=== PATIENT | male | born 1945 | race African-American/Black ===

== ENCOUNTER 2017-10-18 21:13 | Emergency (ER) | payer BC, MEDICARE ==
[~2017-10-18] VITALS: Ht 177.8 cm; Wt 82.0 kg
[~2017-10-18 21:13] MED LIST: ASPI-1158 PO; CLOP75TA33 PO; DIVA500T51 PO; DOXA4TAB3 PO; FINA1TAB18 PO; FURO-151 PO; METO-411 PO; PHEN100C12 PO; POTA10TA11 PO; SIMV20TA6 PO; TOPI25TA48 PO
[2017-10-18] MEDS ORDERED: LORAZEPAM 1MG TABLET PO ONE (21:30)
[2017-10-18 23:17] LABS: BASOPHILS % 1.3 % (0.0-2.0); EOSINOPHILS % 0.7 % (0.0-5.0); HEMATOCRIT. 41.7 % (42.0-52.0); HEMOGLOBIN. 13.8 g/dL (14.0-18.0); LYMPHOCYTES % 39.2 % (20.0-50.0); MEAN CORPUSCULAR HEMOGLOBIN 32.2 pg (28.0-32.0); MEAN CORPUSCULAR VOLUME 97.3 fL (80.0-94.0); MEAN PLATELET VOLUME 7.2 fl (7.4-10.4); MONOCYTES % 7.3 % (2.0-8.0); NEUTROPHILS % 51.5 % (40.0-76.0); PLATELET 175 x1000/uL (130-400); RED BLOOD CELL COUNT 4.28 mill/uL (4.7-6.1); RED CELL DISTRIBUTION WIDTH 14.4 % (11.6-14.6)
[2017-10-18 23:22] LABS: CHLORIDE 109 mEq/L (98-107)
[2017-10-19 00:34] VITALS: BP 142/64
== END 2017-10-19 01:08 | disposition home or self-care (01) ==
LOC: ER 21:13
DX: G40.909 Epilepsy, unspecified, not intractable, without status epilepticus (principal); I11.0 Hypertensive heart disease with heart failure; I50.9 Heart failure, unspecified; Z88.1 Allergy status to other antibiotic agents
CPT/HCPCS: 36415; 70450; 80053; 80185; 85025; 99285

== ENCOUNTER 2018-07-21 13:53 | Emergency (ER) | payer BC, MEDICARE ==
[~2018-07-21] VITALS: Ht 175.3 cm; Wt 79.0 kg
[2018-07-21 15:57] LABS: BASOPHILS % 0.7 % (0.0-2.0); EOSINOPHILS % 0.2 % (0.0-5.0); HEMATOCRIT. 45.8 % (42.0-52.0); HEMOGLOBIN. 15.1 g/dL (14.0-18.0); LYMPHOCYTES % 42.7 % (20.0-50.0); MEAN CORPUSCULAR HEMOGLOBIN 32.8 pg (28.0-32.0); MEAN CORPUSCULAR VOLUME 99.3 fL (80.0-94.0); MEAN PLATELET VOLUME 7.8 fl (7.4-10.4); MONOCYTES % 5.4 % (2.0-8.0); PLATELET 160 x1000/uL (130-400); RED BLOOD CELL COUNT 4.61 mill/uL (4.7-6.1); RED CELL DISTRIBUTION WIDTH 15.1 % (11.6-14.6)
[2018-07-21 16:02] LABS: CHLORIDE 114 mEq/L (98-107)
[2018-07-21 16:06] LABS: ETHANOL BLOOD < 10 mg/dL
[2018-07-21 16:07] LABS: CLARITY URINE CLEAR (CLEAR); COLOR URINE YELLOW (YELLOW); KETONES URINE NEGATIVE (NEGATIVE); LEUKOCYTE ESTERASE URINE NEGATIVE (NEGATIVE); NITRITE URINE NEGATIVE (NEGATIVE); OCCULT BLOOD URINE NEGATIVE (NEGATIVE); PH URINE 6.5 (4.5-8.0); PROTEIN URINE NEGATIVE (NEGATIVE)
[2018-07-21 16:19] LABS: *AMPHETAMINES SCREEN URINE NEGATIVE (NEGATIVE); *BARBITURATES SCREEN URINE NEGATIVE (NEGATIVE); *BENZODIAZEPINES SCREEN URINE NEGATIVE (NEGATIVE); *COCAINE SCREEN URINE NEGATIVE (NEGATIVE)
[2018-07-21 16:20] LABS: CANNABINOID URINE SCREEN PRESUMTIVE POSITIVE (NEGATIVE); METHADONE URINE SCREEN NEGATIVE (NEGATIVE); OPIATES URINE SCREEN NEGATIVE (NEGATIVE); PHENCYCLIDINE URINE SCREEN NEGATIVE (NEGATIVE)
[2018-07-21 17:32] VITALS: BP 166/67
== END 2018-07-21 18:00 | disposition home or self-care (01) ==
LOC: ER 13:53
DX: R56.9 Unspecified convulsions (principal); I11.0 Hypertensive heart disease with heart failure; I50.9 Heart failure, unspecified; Z79.82 Long term (current) use of aspirin; Z79.899 Other long term (current) drug therapy; Z88.5 Allergy status to narcotic agent
CPT/HCPCS: 36415; 71045; 80165; 80185; 80305; 80320; 83605; 84484; 99284; G0480

== ENCOUNTER 2018-10-02 13:27 | Inpatient (IN) | payer MEDICARE, BC ==
[2018-10-02] VITALS (19 sets, daily range): BP systolic 114–157; BP diastolic 49–128
[~2018-10-02] VITALS: Ht 172.7 cm; Wt 77.6 kg
[~2018-10-02 13:27] MED LIST changes: -FINA1TAB18 PO; -POTA10TA11 PO
[2018-10-02] MEDS ORDERED: LORAZEPAM 2MG/ML CPJ ONE (14:05)
[2018-10-02] MEDS ORDERED: ONDANSETRON HCL 4MG/2ML INJ ONE (14:05)
[2018-10-02] MEDS: ONDANSETRON HCL 4MG/2ML INJ IV STA ×2 (14:20→14:27)
[2018-10-02 14:34] LABS: BG BASE EXCESS -4.3 mmol/L (-2.0-2.0); BG CARBOXYHEMOGLOBIN 1.2 % (0.5-1.5); BG DEOXYHEMOGLOBIN 6.4 % (0.0-5.0); BG FRACTION INSPIRED OXYGEN 21; BG HCO3 ACT 21.4 mmol/L (22.0-26.0); BG METHEMOGLOBIN 0.2 % (0.0-1.5); BG OXYGEN SATURATION 93.5 % (92.0-98.5); BG OXYHEMOGLOBIN 92.2 % (94.0-97.0); BG PCO2 41.6 mmHg (35.0-45.0); BG PO2 72.6 mmHg (75.0-100.0); BG SAMPLE SITE RIGHT RADIAL; BG TOTAL HEMOGLOBIN 13.9 g/dL (12.0-18.0); BG VENT MODE ROOM AIR
[2018-10-02] MEDS ORDERED: LEVOFLOXACIN 500MG PREMIX 100 ML IV ONE (14:45)
[2018-10-02 14:49] LABS: BASOPHILS % 0.9 % (0.0-2.0); EOSINOPHILS % 0.4 % (0.0-5.0); HEMATOCRIT. 39.5 % (42.0-52.0); HEMOGLOBIN. 13.2 g/dL (14.0-18.0); LYMPHOCYTES % 39.6 % (20.0-50.0); MEAN CORPUSCULAR HEMOGLOBIN 32.8 pg (28.0-32.0); MEAN CORPUSCULAR VOLUME 97.9 fL (80.0-94.0); MEAN PLATELET VOLUME 8.3 fl (7.4-10.4); NEUTROPHILS % 52.1 % (40.0-76.0); PLATELET 125 x1000/uL (130-400); RED BLOOD CELL COUNT 4.03 mill/uL (4.7-6.1); RED CELL DISTRIBUTION WIDTH 14.5 % (11.6-14.6)
[2018-10-02 14:56] LABS: CHLORIDE 110 mEq/L (98-107)
[2018-10-02 14:58] LABS: INR 1.4; PROTHROMBIN TIME 13.8 sec (9.6-11.0)
[2018-10-02 15:01] LABS: ETHANOL BLOOD < 10 mg/dL
[2018-10-02 15:04] LABS: LDL CHOLESTEROL 72 mg/dL (5-100)
[2018-10-02 15:05] LABS: CREATINE KINASE 82 IU/L (39-308); CREATINE KINASE MB FRACTION 1.5 ng/mL (0.5-3.6)
[2018-10-02 15:12] LABS: CARBAMAZEPINE < 0.5 ug/mL (4-12); PHENOBARBITAL < 2.1 ug/mL (15.0-40.0)
[2018-10-02] MEDS ORDERED: IOHEXOL-350 100 ML BOTTLE ONE ×2 (15:17→19:36)
[2018-10-02] MEDS ORDERED: VALPROATE SODIUM 500 MG in SODIUM CHLORIDE 0.9% 100 ML IV STA (15:28)
[2018-10-02] MEDS ORDERED: SODIUM CHLORIDE 0.9% IV ONE (15:30)
[2018-10-02] MEDS ORDERED: PHENYTOIN SODIUM IV ONE (15:30)
[2018-10-02 16:15] LABS: CLARITY URINE CLEAR (CLEAR); COLOR URINE YELLOW (YELLOW); KETONES URINE NEGATIVE (NEGATIVE); LEUKOCYTE ESTERASE URINE NEGATIVE (NEGATIVE); NITRITE URINE NEGATIVE (NEGATIVE); OCCULT BLOOD URINE TRACE (NEGATIVE); PH URINE 6.5 (4.5-8.0); PROTEIN URINE NEGATIVE (NEGATIVE); SPECIFIC GRAVITY URINE 1.032 (1.005-1.030); UROBILINOGEN URINE 0.2 E.U./dL (0.2-1.0)
[2018-10-02] MEDS ORDERED: ACETAMINOPHEN 650MG SUPP PR PRN (16:45)
[2018-10-02] MEDS ORDERED: ONDANSETRON HCL 4MG/2ML INJ IV PRN (16:45)
[2018-10-02] MEDS ORDERED: LORAZEPAM 2MG/ML CPJ IV PRN (16:45)
[2018-10-02] MEDS ORDERED: DIPHENHYDRAMINE 50MG/ML VIAL IV PRN (16:45)
[2018-10-02] MEDS ORDERED: IPRATROPIUM/ALBUTEROL 0.5-3(2.5)MG/3ML NEB INH PRN (16:45)
[2018-10-02] MEDS ORDERED: HALOPERIDOL LACTATE 5MG/ML VIAL IM PRN (16:45)
[2018-10-02 17:13] LABS: *BENZODIAZEPINES SCREEN URINE NEGATIVE (NEGATIVE); *COCAINE SCREEN URINE NEGATIVE (NEGATIVE); METHADONE URINE SCREEN NEGATIVE (NEGATIVE); OPIATES URINE SCREEN NEGATIVE (NEGATIVE)
[2018-10-02 17:14] LABS: *AMPHETAMINES SCREEN URINE NEGATIVE (NEGATIVE); *BARBITURATES SCREEN URINE NEGATIVE (NEGATIVE); CANNABINOID URINE SCREEN NEGATIVE (NEGATIVE); PHENCYCLIDINE URINE SCREEN NEGATIVE (NEGATIVE)
[2018-10-02] MEDS ORDERED: LORAZEPAM 2MG/ML CPJ IV ONE (17:45)
[2018-10-02] MEDS ORDERED: TAMS-11 MT (19:25)
[2018-10-02] MEDS: DEXT 5%/0.45% NACL 1000ML 1,000 ML IV SCH (19:59)
[2018-10-02 20:29] LABS: BG BASE EXCESS 0.1 mmol/L (-2.0-2.0); BG CARBOXYHEMOGLOBIN 0.8 % (0.5-1.5); BG DEOXYHEMOGLOBIN 5.8 % (0.0-5.0); BG FRACTION INSPIRED OXYGEN 21; BG HCO3 ACT 24.8 mmol/L (22.0-26.0); BG METHEMOGLOBIN 0.3 % (0.0-1.5); BG OXYGEN SATURATION 94.1 % (92.0-98.5); BG OXYHEMOGLOBIN 93.1 % (94.0-97.0); BG PCO2 40.8 mmHg (35.0-45.0); BG PH 7.402 (7.350-7.450); BG PO2 68.9 mmHg (75.0-100.0); BG SAMPLE SITE LEFT RADIAL; BG TOTAL HEMOGLOBIN 13.2 g/dL (12.0-18.0); BG VENT MODE ROOM AIR
[2018-10-02] MEDS: TAMSULOSIN HCL 0.4MG SR CAPSULE PO SCH ×2 (21:00→21:41)
[2018-10-02] MEDS ORDERED: PIPERACILLIN/TAZ 3.375G PREMIX 50 ML IV SCH (21:00)
[2018-10-02] MEDS: PHENYTOIN SODIUM 100MG/2ML VIAL IV SCH (21:28)
[2018-10-02] MEDS ORDERED: VALPROATE SODIUM 500 MG in SODIUM CHLORIDE 0.9% 100 ML IV SCH (22:00)
[2018-10-02] MEDS: PIPERACILLIN/TAZ 3.375G PREMIX 50 ML IV SCH (22:30)
[2018-10-02 23:41] LABS: CREATINE KINASE MB FRACTION 1.2 ng/mL (0.5-3.6)
[2018-10-03] VITALS (45 sets, daily range): BP systolic 119–166; BP diastolic 51–116
[2018-10-03 04:44] LABS: BASOPHILS % 0.6 % (0.0-2.0); EOSINOPHILS % 0.3 % (0.0-5.0); HEMATOCRIT. 38.8 % (42.0-52.0); HEMOGLOBIN. 12.9 g/dL (14.0-18.0); LYMPHOCYTES % 43.2 % (20.0-50.0); MEAN CORPUSCULAR HEMOGLOBIN 32.5 pg (28.0-32.0); MEAN CORPUSCULAR VOLUME 97.6 fL (80.0-94.0); MEAN PLATELET VOLUME 8.2 fl (7.4-10.4); MONOCYTES % 9.9 % (2.0-8.0); PLATELET 127 x1000/uL (130-400); RED BLOOD CELL COUNT 3.98 mill/uL (4.7-6.1); RED CELL DISTRIBUTION WIDTH 14.7 % (11.6-14.6)
[2018-10-03 04:52] LABS: CHLORIDE 110 mEq/L (98-107)
[2018-10-03 05:02] LABS: LDL CHOLESTEROL 75 mg/dL (5-100)
[2018-10-03 05:03] LABS: CREATINE KINASE 94 IU/L (39-308)
[2018-10-03 05:04] LABS: HDL CHOLESTEROL 52 mg/dL (40-59); T4 FREE 0.54 ng/dL (0.76-1.46)
[2018-10-03] MEDS: PIPERACILLIN/TAZ 3.375G PREMIX 50 ML IV SCH ×3 (06:32→21:39)
[2018-10-03] MEDS: PHENYTOIN SODIUM 100MG/2ML VIAL IV SCH ×3 (06:32→21:40)
[2018-10-03] MEDS: VALPROATE SODIUM 500 MG in SODIUM CHLORIDE 0.9% 100 ML IV SCH ×2 (06:32→18:13)
[2018-10-03] MEDS: ASPIRIN 81MG TABLET PO SCH (08:48)
[2018-10-03] MEDS: ATORVASTATIN CALCIUM 10MG TABLET PO SCH ×2 (08:48→21:39)
[2018-10-03] MEDS: DEXT 5%/0.45% NACL 1000ML 1,000 ML IV SCH ×2 (12:10→15:21)
[2018-10-03] MEDS: TAMSULOSIN HCL 0.4MG SR CAPSULE PO SCH (21:40)
[2018-10-04] VITALS (31 sets, daily range): BP systolic 113–155; BP diastolic 49–80
[2018-10-04 04:25] LABS: BASOPHILS % 0.6 % (0.0-2.0); EOSINOPHILS % 1.3 % (0.0-5.0); HEMOGLOBIN. 14.1 g/dL (14.0-18.0); LYMPHOCYTES % 35.2 % (20.0-50.0); MEAN CORPUSCULAR HEMOGLOBIN 32.6 pg (28.0-32.0); MEAN CORPUSCULAR VOLUME 99.1 fL (80.0-94.0); MONOCYTES % 10.1 % (2.0-8.0); NEUTROPHILS % 52.8 % (40.0-76.0); PLATELET 115 x1000/uL (130-400); RED BLOOD CELL COUNT 4.34 mill/uL (4.7-6.1); RED CELL DISTRIBUTION WIDTH 14.6 % (11.6-14.6)
[2018-10-04 04:30] LABS: CHLORIDE 110 mEq/L (98-107)
[2018-10-04] MEDS: PIPERACILLIN/TAZ 3.375G PREMIX 50 ML IV SCH ×2 (05:38→13:14)
[2018-10-04] MEDS: ASPIRIN 81MG TABLET PO SCH (08:59)
[2018-10-04] MEDS: LAMOTRIGINE 25MG TABLET PO SCH ×2 (08:59→16:15)
[2018-10-04] MEDS: PHENYTOIN SODIUM EXTENDED 100MG CAPSULE PO SCH ×2 (09:00→16:15)
[2018-10-04] MEDS ORDERED: DIVALPROEX SODIUM 500MG ER TABLET PO SCH (09:00)
[2018-10-04] MEDS ORDERED: CLOPIDOGREL 75MG TABLET PO SCH (14:30)
[2018-10-06 09:11] LABS: TOPIRAMATE 1.2 ug/mL (2.0-25.0)
== END 2018-10-04 16:30 | disposition home or self-care (01) | DRG 100 ==
LOC: ER 13:27 → ENRESERV 17:32 → MICUNO 18:25
PROVIDERS: ADMIT Internal Medicine; ATTEND Internal Medicine
DX: G40.411 Other generalized epilepsy and epileptic syndromes, intractable, with status epilepticus (principal); I50.43 Acute on chronic combined systolic (congestive) and diastolic (congestive) heart failure; E87.2 Acidosis; D68.9 Coagulation defect, unspecified; G81.90 Hemiplegia, unspecified affecting unspecified side; I11.0 Hypertensive heart disease with heart failure; E11.9 Type 2 diabetes mellitus without complications; E86.0 Dehydration; D72.819 Decreased white blood cell count, unspecified; D69.6 Thrombocytopenia, unspecified; D64.9 Anemia, unspecified; R29.810 Facial weakness; I65.21 Occlusion and stenosis of right carotid artery; E78.5 Hyperlipidemia, unspecified; Z79.899 Other long term (current) drug therapy; Z88.8 Allergy status to other drugs, medicaments and biological substances; Z79.82 Long term (current) use of aspirin
CPT/HCPCS: 36415; 36600; 70496; 70498; 70551; 71045; 80048; 80061; 80156; 80165; 80184; 80185; 80201; 80305; 80320; 82375; 82550; 82553; 82805; 82962; 83605; 83721; 83880; 84439; 84443; 84484; 93005; 93306; 93970; 96361; 96365; 99285; J1165; J1956; J2060; J2405; J2543; J3490; J7050; Q9967; G0480

== ENCOUNTER 2019-06-24 22:06 | Inpatient (IN) | payer MEDICARE, BC ==
[~2019-06-24] VITALS: Ht 179.1 cm; Wt 87.5 kg
[~2019-06-24 22:06] MED LIST changes: +SIMV-43 PO; -SIMV20TA6 PO; +TAMS-11 MT
[2019-06-24] MEDS ORDERED: LORAZEPAM 2MG/ML CPJ IV ONE (23:30)
[2019-06-24] MEDS ORDERED: PHENYTOIN SODIUM 1,000 MG in SODIUM CHLORIDE 0.9% 100 ML IV ONE (23:30)
[2019-06-25] MEDS ORDERED: LORAZEPAM 2MG/ML CPJ IM ONE (00:45)
[2019-06-25] MEDS ORDERED: PHENYTOIN SODIUM 1,000 MG in SODIUM CHLORIDE 0.9% 100 ML IV SCH (01:00)
[2019-06-25 01:44] LABS: CHLORIDE 108 mEq/L (98-107)
[2019-06-25 01:49] LABS: ETHANOL BLOOD < 10 mg/dL
[2019-06-25 01:54] LABS: BASOPHILS % 0.2 % (0.0-2.0); HEMATOCRIT. 40.5 % (42.0-52.0); HEMOGLOBIN. 13.5 g/dL (14.0-18.0); LYMPHOCYTES % 16.3 % (20.0-50.0); MEAN CORPUSCULAR HEMOGLOBIN 32.2 pg (28.0-32.0); MEAN CORPUSCULAR VOLUME 96.4 fL (80.0-94.0); MEAN PLATELET VOLUME 8.2 fl (7.4-10.4); MONOCYTES % 6.7 % (2.0-8.0); NEUTROPHILS % 76.8 % (40.0-76.0); PLATELET 156 x1000/uL (130-400); RED CELL DISTRIBUTION WIDTH 15.1 % (11.6-14.6)
[2019-06-25 02:52] LABS: CLARITY URINE CLEAR (CLEAR); COLOR URINE YELLOW (YELLOW); KETONES URINE 1+ (NEGATIVE); LEUKOCYTE ESTERASE URINE NEGATIVE (NEGATIVE); NITRITE URINE NEGATIVE (NEGATIVE); OCCULT BLOOD URINE TRACE (NEGATIVE); PH URINE >=9.0 (4.5-8.0); PROTEIN URINE NEGATIVE (NEGATIVE); SPECIFIC GRAVITY URINE 1.017 (1.005-1.030)
[2019-06-25 03:15] LABS: *AMPHETAMINES SCREEN URINE NEGATIVE (NEGATIVE); *BARBITURATES SCREEN URINE NEGATIVE (NEGATIVE); *BENZODIAZEPINES SCREEN URINE NEGATIVE (NEGATIVE); *COCAINE SCREEN URINE NEGATIVE (NEGATIVE); METHADONE URINE SCREEN NEGATIVE (NEGATIVE)
[2019-06-25 03:16] LABS: CANNABINOID URINE SCREEN PRESUMTIVE POSITIVE (NEGATIVE); OPIATES URINE SCREEN NEGATIVE (NEGATIVE); PHENCYCLIDINE URINE SCREEN NEGATIVE (NEGATIVE)
[2019-06-25] MEDS ORDERED: PIPERACILLIN/TAZOBACTAM 3.375 G in DEXT 5% WATER 100 ML IV SCH (14:00)
[2019-06-25] MEDS ORDERED: IPRATROPIUM/ALBUTEROL 0.5-3(2.5)MG/3ML NEB HHN PRN (14:00)
[2019-06-25] MEDS ORDERED: ACETAMINOPHEN 325MG TABLET PO PRN (14:00)
[2019-06-25] MEDS ORDERED: ONDANSETRON HCL 4MG/2ML INJ IV PRN (14:00)
[2019-06-25] MEDS ORDERED: LORAZEPAM 2MG/ML CPJ IV PRN (14:00)
[2019-06-25] MEDS ORDERED: PIPERACILLIN/TAZOBACTAM 3.375 G in DEXT 5% WATER 100 ML IV NR (14:09)
[2019-06-25 21:00] VITALS: BP 157/106
[2019-06-25] MEDS: PIPERACILLIN/TAZOBACTAM 3.375 G in DEXT 5% WATER 100 ML IV SCH (22:57)
[2019-06-25] MEDS: ENOXAPARIN 30MG/0.3ML SYR SUBCUT SCH (22:58)
[2019-06-25] MEDS: CARVEDILOL 6.25 MG TABLET PO SCH (22:59)
[2019-06-26] VITALS: BP 177/71
[2019-06-26 04:00] VITALS: BP 167/66
[2019-06-26] MEDS: PIPERACILLIN/TAZOBACTAM 3.375 G in DEXT 5% WATER 100 ML IV SCH ×4 (04:25→23:23)
[2019-06-26 08:00] VITALS: BP 158/67
[2019-06-26] MEDS: ENOXAPARIN 30MG/0.3ML SYR SUBCUT SCH ×2 (09:00→23:25)
[2019-06-26] MEDS: LOSARTAN POTASSIUM 50 MG TABLET PO SCH (10:45)
[2019-06-26] MEDS: CARVEDILOL 6.25 MG TABLET PO SCH ×2 (10:46→23:24)
[2019-06-26] MEDS ORDERED: VANCOMYCIN 1,000 MG in DEXT 5% WATER 250 ML IV SCH (11:00)
[2019-06-26 12:00] VITALS: BP 155/72
[2019-06-26 16:00] VITALS: BP 174/91
[2019-06-26] MEDS: PHENYTOIN SODIUM EXTENDED 100MG CAPSULE PO SCH (16:11)
[2019-06-26] MEDS: DIVALPROEX SODIUM 500MG DR TABLET PO SCH (16:13)
[2019-06-26] MEDS: TOPIRAMATE 25MG TABLET PO SCH (16:13)
[2019-06-26] MEDS: FUROSEMIDE 40MG TABLET PO SCH (16:13)
[2019-06-26 20:00] VITALS: BP 153/70
[2019-06-26] MEDS: METOPROLOL TARTRATE 50MG TABLET PO SCH (23:24)
[2019-06-26] MEDS: TAMSULOSIN HCL 0.4MG SR CAPSULE PO SCH (23:24)
[2019-06-26] MEDS: ATORVASTATIN CALCIUM 10MG TABLET PO SCH (23:24)
[2019-06-27] VITALS: BP 162/68
[2019-06-27 00:30] VITALS: BP 155/58
[2019-06-27 04:00] VITALS: BP 156/67
[2019-06-27] MEDS: PIPERACILLIN/TAZOBACTAM 3.375 G in DEXT 5% WATER 100 ML IV SCH ×4 (06:23→21:39)
[2019-06-27] MEDS: FUROSEMIDE 40MG TABLET PO SCH ×2 (06:24→17:22)
[2019-06-27 08:00] VITALS: BP 157/72
[2019-06-27] MEDS: PHENYTOIN SODIUM EXTENDED 100MG CAPSULE PO SCH ×2 (09:00→17:22)
[2019-06-27] MEDS: DIVALPROEX SODIUM 500MG DR TABLET PO SCH ×2 (09:00→17:22)
[2019-06-27] MEDS: CARVEDILOL 6.25 MG TABLET PO SCH ×2 (09:27→21:43)
[2019-06-27] MEDS: DOXAZOSIN MESYLATE 4MG TABLET PO SCH (09:28)
[2019-06-27] MEDS: METOPROLOL TARTRATE 50MG TABLET PO SCH ×2 (09:29→21:36)
[2019-06-27] MEDS: LOSARTAN POTASSIUM 50 MG TABLET PO SCH (09:29)
[2019-06-27] MEDS: CLOPIDOGREL 75MG TABLET PO SCH (09:29)
[2019-06-27] MEDS: TOPIRAMATE 25MG TABLET PO SCH ×2 (09:29→17:22)
[2019-06-27] MEDS: ASPIRIN 81MG EC TABLET PO SCH (09:30)
[2019-06-27] MEDS: ENOXAPARIN 30MG/0.3ML SYR SUBCUT SCH ×2 (09:31→21:38)
[2019-06-27 20:00] VITALS: BP 137/68
[2019-06-27] MEDS: ATORVASTATIN CALCIUM 10MG TABLET PO SCH (21:37)
[2019-06-27] MEDS: TAMSULOSIN HCL 0.4MG SR CAPSULE PO SCH (21:38)
[2019-06-28] VITALS: BP 146/65
[2019-06-28] MEDS: PIPERACILLIN/TAZOBACTAM 3.375 G in DEXT 5% WATER 100 ML IV SCH ×2 (03:02→10:53)
[2019-06-28 04:00] VITALS: BP 152/61
[2019-06-28] MEDS: FUROSEMIDE 40MG TABLET PO SCH ×2 (05:55→16:29)
[2019-06-28] MEDS: CLOPIDOGREL 75MG TABLET PO SCH (10:51)
[2019-06-28] MEDS: LOSARTAN POTASSIUM 50 MG TABLET PO SCH (10:51)
[2019-06-28] MEDS: CARVEDILOL 6.25 MG TABLET PO SCH ×2 (10:51→20:58)
[2019-06-28] MEDS: ENOXAPARIN 30MG/0.3ML SYR SUBCUT SCH (10:51)
[2019-06-28] MEDS: DOXAZOSIN MESYLATE 4MG TABLET PO SCH (10:52)
[2019-06-28] MEDS: METOPROLOL TARTRATE 50MG TABLET PO SCH ×2 (10:52→20:58)
[2019-06-28] MEDS: DIVALPROEX SODIUM 500MG DR TABLET PO SCH ×2 (10:52→16:31)
[2019-06-28] MEDS: PHENYTOIN SODIUM EXTENDED 100MG CAPSULE PO SCH ×2 (10:52→16:31)
[2019-06-28] MEDS: TOPIRAMATE 25MG TABLET PO SCH ×2 (10:53→16:31)
[2019-06-28] MEDS: ASPIRIN 81MG EC TABLET PO SCH (10:55)
[2019-06-28 14:55] LABS: BG BASE EXCESS 0.6 mmol/L (-2.0-2.0); BG CARBOXYHEMOGLOBIN 0.7 % (0.5-1.5); BG DEOXYHEMOGLOBIN 3.7 % (0.0-5.0); BG FRACTION INSPIRED OXYGEN 21; BG METHEMOGLOBIN 0.1 % (0.0-1.5); BG OXYGEN SATURATION 96.3 % (92.0-98.5); BG OXYHEMOGLOBIN 95.5 % (94.0-97.0); BG PCO2 39.3 mmHg (35.0-45.0); BG PH 7.421 (7.350-7.450); BG PO2 84.5 mmHg (75.0-100.0); BG SAMPLE SITE RIGHT BRACHIAL; BG TOTAL HEMOGLOBIN 13.5 g/dL (12.0-18.0); BG VENT MODE ROOM AIR
[2019-06-28 15:59] LABS: CHLORIDE 107 mEq/L (98-107)
[2019-06-28 16:07] LABS: BASOPHILS % 0.6 % (0.0-2.0); EOSINOPHILS % 3.9 % (0.0-5.0); HEMOGLOBIN. 12.7 g/dL (14.0-18.0); LYMPHOCYTES % 32.2 % (20.0-50.0); MEAN CORPUSCULAR HEMOGLOBIN 32.3 pg (28.0-32.0); MEAN CORPUSCULAR VOLUME 96.6 fL (80.0-94.0); MEAN PLATELET VOLUME 8.6 fl (7.4-10.4); NEUTROPHILS % 49.3 % (40.0-76.0); PLATELET 146 x1000/uL (130-400); RED BLOOD CELL COUNT 3.94 mill/uL (4.7-6.1); RED CELL DISTRIBUTION WIDTH 14.9 % (11.6-14.6)
[2019-06-28] MEDS ORDERED: LEVOFLOXACIN 500MG PREMIX 100 ML IV SCH (17:00)
[2019-06-28 20:15] VITALS: BP 143/72
[2019-06-28] MEDS: TAMSULOSIN HCL 0.4MG SR CAPSULE PO SCH (20:57)
[2019-06-28] MEDS: ATORVASTATIN CALCIUM 10MG TABLET PO SCH (20:58)
[2019-06-29] VITALS: BP 130/70
[2019-06-29 04:00] VITALS: BP 137/80
[2019-06-29] MEDS: FUROSEMIDE 40MG TABLET PO SCH ×2 (07:00→17:21)
[2019-06-29 07:16] LABS: INR 1.2; PROTHROMBIN TIME 13.1 sec (9.6-11.0)
[2019-06-29 08:00] VITALS: BP 117/57
[2019-06-29] MEDS: ASPIRIN 81MG EC TABLET PO SCH (08:40)
[2019-06-29] MEDS: LOSARTAN POTASSIUM 50 MG TABLET PO SCH (08:40)
[2019-06-29] MEDS: PHENYTOIN SODIUM EXTENDED 100MG CAPSULE PO SCH ×2 (08:40→17:23)
[2019-06-29] MEDS: CLOPIDOGREL 75MG TABLET PO SCH (08:41)
[2019-06-29] MEDS: METOPROLOL TARTRATE 50MG TABLET PO SCH ×2 (08:41→20:51)
[2019-06-29] MEDS: CARVEDILOL 6.25 MG TABLET PO SCH ×2 (08:42→20:52)
[2019-06-29] MEDS: DOXAZOSIN MESYLATE 4MG TABLET PO SCH (08:42)
[2019-06-29] MEDS: ENOXAPARIN 40MG/0.4ML SYR SUBCUT SCH (08:43)
[2019-06-29] MEDS: TOPIRAMATE 25MG TABLET PO SCH ×2 (08:43→17:21)
[2019-06-29 12:00] VITALS: BP 112/56
[2019-06-29] MEDS: DIVALPROEX SODIUM 500MG DR TABLET PO SCH ×2 (12:05→17:21)
[2019-06-29] MEDS ORDERED: PIPERACILLIN/TAZOBACTAM 3.375 G in DEXT 5% WATER 100 ML IV SCH (14:00)
[2019-06-29] MEDS ORDERED: VANCOMYCIN 1500MG in DEXTROSE 5% WATER 250ML IV NR (15:00)
[2019-06-29 16:00] VITALS: BP 117/66
[2019-06-29] MEDS: LEVOFLOXACIN 500MG TABLET PO SCH (17:21)
[2019-06-29 20:29] VITALS: BP 114/62
[2019-06-29] MEDS: TAMSULOSIN HCL 0.4MG SR CAPSULE PO SCH (20:52)
[2019-06-29] MEDS: ATORVASTATIN CALCIUM 10MG TABLET PO SCH (20:52)
[2019-06-30] VITALS (7 sets, daily range): BP systolic 102–155; BP diastolic 48–76
[2019-06-30] MEDS ORDERED: VANCOMYCIN 1 G PREMIX 200 ML IV SCH (05:00)
[2019-06-30 06:25] LABS: CHLORIDE 111 mEq/L (98-107)
[2019-06-30 06:31] LABS: BASOPHILS % 0.3 % (0.0-2.0); EOSINOPHILS % 1.4 % (0.0-5.0); HEMATOCRIT. 37.1 % (42.0-52.0); HEMOGLOBIN. 12.6 g/dL (14.0-18.0); LYMPHOCYTES % 27.7 % (20.0-50.0); MEAN CORPUSCULAR HEMOGLOBIN 32.9 pg (28.0-32.0); MEAN CORPUSCULAR VOLUME 96.4 fL (80.0-94.0); MEAN PLATELET VOLUME 7.9 fl (7.4-10.4); MONOCYTES % 14.2 % (2.0-8.0); NEUTROPHILS % 56.4 % (40.0-76.0); PLATELET 169 x1000/uL (130-400); RED BLOOD CELL COUNT 3.84 mill/uL (4.7-6.1); RED CELL DISTRIBUTION WIDTH 14.6 % (11.6-14.6)
[2019-06-30] MEDS: FUROSEMIDE 40MG TABLET PO SCH ×2 (06:38→17:48)
[2019-06-30] MEDS: TOPIRAMATE 25MG TABLET PO SCH ×2 (09:14→17:48)
[2019-06-30] MEDS: ASPIRIN 81MG EC TABLET PO SCH (09:14)
[2019-06-30] MEDS: PHENYTOIN SODIUM EXTENDED 100MG CAPSULE PO SCH ×2 (09:15→17:48)
[2019-06-30] MEDS: CARVEDILOL 6.25 MG TABLET PO SCH ×2 (09:15→20:36)
[2019-06-30] MEDS: ENOXAPARIN 40MG/0.4ML SYR SUBCUT SCH (09:16)
[2019-06-30] MEDS: DOXAZOSIN MESYLATE 4MG TABLET PO SCH (09:16)
[2019-06-30] MEDS: METOPROLOL TARTRATE 50MG TABLET PO SCH ×2 (09:16→20:37)
[2019-06-30] MEDS: LOSARTAN POTASSIUM 50 MG TABLET PO SCH (09:16)
[2019-06-30] MEDS: CLOPIDOGREL 75MG TABLET PO SCH (09:16)
[2019-06-30] MEDS: DIVALPROEX SODIUM 500MG DR TABLET PO SCH ×2 (09:17→17:48)
[2019-06-30] MEDS: LEVOFLOXACIN 500MG TABLET PO SCH (17:48)
[2019-06-30] MEDS: ATORVASTATIN CALCIUM 10MG TABLET PO SCH (20:36)
[2019-06-30] MEDS: TAMSULOSIN HCL 0.4MG SR CAPSULE PO SCH (20:36)
[2019-07-01] VITALS: BP 125/80
[2019-07-01 04:00] VITALS: BP 114/50
[2019-07-01] MEDS: FUROSEMIDE 40MG TABLET PO SCH (06:38)
[2019-07-01 08:00] VITALS: BP 129/66
[2019-07-01] MEDS: ENOXAPARIN 40MG/0.4ML SYR SUBCUT SCH (08:51)
[2019-07-01] MEDS: CLOPIDOGREL 75MG TABLET PO SCH (08:52)
[2019-07-01] MEDS: DIVALPROEX SODIUM 500MG DR TABLET PO SCH (08:52)
[2019-07-01] MEDS: TOPIRAMATE 25MG TABLET PO SCH (08:52)
[2019-07-01] MEDS: ASPIRIN 81MG EC TABLET PO SCH (08:52)
[2019-07-01] MEDS: PHENYTOIN SODIUM EXTENDED 100MG CAPSULE PO SCH (08:52)
[2019-07-01] MEDS: DOXAZOSIN MESYLATE 4MG TABLET PO SCH (08:57)
[2019-07-01] MEDS: LOSARTAN POTASSIUM 50 MG TABLET PO SCH (08:57)
[2019-07-01] MEDS: CARVEDILOL 6.25 MG TABLET PO SCH (08:57)
[2019-07-01] MEDS: METOPROLOL TARTRATE 50MG TABLET PO SCH (08:57)
[2019-07-01 11:14] LABS: EOSINOPHILS % 1.2 % (0.0-5.0); HEMATOCRIT. 37.2 % (42.0-52.0); HEMOGLOBIN. 12.5 g/dL (14.0-18.0); LYMPHOCYTES % 25.5 % (20.0-50.0); MEAN CORPUSCULAR HEMOGLOBIN 32.6 pg (28.0-32.0); MEAN PLATELET VOLUME 8.1 fl (7.4-10.4); NEUTROPHILS % 58.3 % (40.0-76.0); PLATELET 187 x1000/uL (130-400); RED BLOOD CELL COUNT 3.84 mill/uL (4.7-6.1); RED CELL DISTRIBUTION WIDTH 14.7 % (11.6-14.6)
[2019-07-01 11:17] LABS: CHLORIDE 113 mEq/L (98-107)
[2019-07-01 12:00] VITALS: BP 112/51
[2019-07-01] MEDS ORDERED: LEVO500T2 MT (12:15)
[2019-07-01 12:56] VITALS: BP 112/51
== END 2019-07-01 16:30 | disposition home or self-care (01) | DRG 177 ==
LOC: ER 22:06 → EEVIPCON 06-25 10:39 → 7EST 06-25 10:39 → EDBEDREQ 06-25 10:54 → CANRESERV 06-25 15:35 → ENRESERV 06-25 15:35 → CANRESERV 06-25 15:38 → ENRESERV 06-25 15:38 → EDBEDREQ 06-25 16:52 → ENRESERV 06-25 19:11 → 5WST 06-28 20:37
PROVIDERS: ADMIT Internal Medicine; ATTEND Internal Medicine
DX: J15.6 Pneumonia due to other Gram-negative bacteria (principal); I50.23 Acute on chronic systolic (congestive) heart failure; G40.89 Other seizures; E87.2 Acidosis; G93.40 Encephalopathy, unspecified; C79.51 Secondary malignant neoplasm of bone; C78.00 Secondary malignant neoplasm of unspecified lung; Z68.1 Body mass index [BMI] 19.9 or less, adult; I11.0 Hypertensive heart disease with heart failure; F12.90 Cannabis use, unspecified, uncomplicated; E87.8 Other disorders of electrolyte and fluid balance, not elsewhere classified; E66.9 Obesity, unspecified; E11.9 Type 2 diabetes mellitus without complications; D64.9 Anemia, unspecified; E86.0 Dehydration; C61 Malignant neoplasm of prostate; N40.0 Benign prostatic hyperplasia without lower urinary tract symptoms; Z20.828 Contact with and (suspected) exposure to other viral communicable diseases; Z88.8 Allergy status to other drugs, medicaments and biological substances; Z91.14 Patient's other noncompliance with medication regimen; Z91.19 Patient's noncompliance with other medical treatment and regimen; Z79.02 Long term (current) use of antithrombotics/antiplatelets; Z79.899 Other long term (current) drug therapy
CPT/HCPCS: 36415; 36600; 71045; 71250; 74176; 80053; 80165; 80185; 80305; 80320; 81003; 82375; 82805; 82962; 83605; 83615; 84145; 84153; 85025; 87077; 87186; 87635; 93005; 93306; 95816; 97116; 97161; 99285; J1165; J1650; J1956; J2060; J2543; J3370; J7050; J7060; G0103; G0480

== ENCOUNTER 2019-07-31 15:11 | Inpatient (IN) | payer MEDICARE, BC ==
[~2019-07-31] VITALS: Ht 175.3 cm; Wt 85.7 kg
[~2019-07-31 15:11] MED LIST changes: +LEVO500T2 MT
[2019-07-31] MEDS ORDERED: SODIUM CHLORIDE 0.9% 1,000 ML IV ONE (15:29)
[2019-07-31] MEDS ORDERED: LORAZEPAM 2MG/ML CPJ IV ONE (15:30)
[2019-07-31 16:16] LABS: BASOPHILS % 0.9 % (0.0-2.0); EOSINOPHILS % 0.5 % (0.0-5.0); HEMATOCRIT. 41.6 % (42.0-52.0); LYMPHOCYTES % 34.4 % (20.0-50.0); MEAN CORPUSCULAR HEMOGLOBIN 33.2 pg (28.0-32.0); MEAN CORPUSCULAR VOLUME 98.8 fL (80.0-94.0); MEAN PLATELET VOLUME 8.1 fl (7.4-10.4); MONOCYTES % 7.6 % (2.0-8.0); NEUTROPHILS % 56.6 % (40.0-76.0); PLATELET 128 x1000/uL (130-400); RED BLOOD CELL COUNT 4.21 mill/uL (4.7-6.1); RED CELL DISTRIBUTION WIDTH 15.3 % (11.6-14.6)
[2019-07-31 16:19] LABS: CHLORIDE 107 mEq/L (98-107)
[2019-07-31] MEDS ORDERED: PHENYTOIN SODIUM 500 MG in SODIUM CHLORIDE 0.9% 50 ML IV ONE (16:45)
[2019-07-31 20:22] VITALS: BP 150/79
[2019-07-31] MEDS ORDERED: DEXTROSE 50% WATER 50ML SYRINGE IV PRN (23:00)
[2019-07-31] MEDS ORDERED: ACETAMINOPHEN 650MG/20.3ML UDC PO PRN (23:00)
[2019-07-31] MEDS ORDERED: LORAZEPAM 2MG/ML CPJ IV PRN (23:00)
[2019-07-31] MEDS: PHENYTOIN SODIUM EXTENDED 100MG CAPSULE PO SCH (23:41)
[2019-07-31] MEDS: FUROSEMIDE 40MG TABLET PO SCH (23:48)
[2019-08-01] VITALS: BP 107/56
[2019-08-01] MEDS: PHENYTOIN SODIUM EXTENDED 100MG CAPSULE PO SCH ×3 (03:27→21:26)
[2019-08-01 04:00] VITALS: BP 139/52
[2019-08-01 06:09] LABS: HEMATOCRIT 35.8 % (42.0-52.0); HEMOGLOBIN 12.2 g/dL (14.0-18.0); MEAN CORPUSCULAR HEMOGLOBIN 33.4 pg (28.0-32.0); MEAN CORPUSCULAR VOLUME 97.7 fL (80.0-94.0); PLATELET 119 x1000/uL (130-400); RED BLOOD CELL COUNT 3.66 mill/uL (4.7-6.1); RED CELL DISTRIBUTION WIDTH 15.1 % (11.6-14.6)
[2019-08-01] MEDS: BLOOD SUGAR DIAGNOSTIC STRIP TEST SCH ×4 (06:39→21:41)
[2019-08-01] MEDS: INSULIN LISPRO 100 UNITS/ML SUBCUT SCH ×4 (06:40→21:00)
[2019-08-01 06:49] LABS: CHLORIDE 108 mEq/L (98-107)
[2019-08-01 08:00] VITALS: BP 135/55
[2019-08-01] MEDS ORDERED: PHENYTOIN SODIUM EXTENDED 100MG CAPSULE PO SCH ×2 (08:00→17:00)
[2019-08-01] MEDS: FUROSEMIDE 40MG TABLET PO SCH ×2 (09:25→17:39)
[2019-08-01] MEDS: LOSARTAN POTASSIUM 50 MG TABLET PO SCH ×2 (09:25→21:22)
[2019-08-01] MEDS: ASPIRIN 81MG EC TABLET PO SCH (09:25)
[2019-08-01] MEDS: CLOPIDOGREL 75MG TABLET PO SCH (09:26)
[2019-08-01] MEDS: ENOXAPARIN 40MG/0.4ML SYR SUBCUT SCH (09:26)
[2019-08-01 12:00] VITALS: BP 130/65
[2019-08-01 12:49] LABS: BG BASE EXCESS -1.9 mmol/L (-2.0-2.0); BG CARBOXYHEMOGLOBIN 1.1 % (0.5-1.5); BG DEOXYHEMOGLOBIN 4.1 % (0.0-5.0); BG HCO3 ACT 21.8 mmol/L (22.0-26.0); BG METHEMOGLOBIN 0.2 % (0.0-1.5); BG OXYGEN SATURATION 95.8 % (92.0-98.5); BG OXYHEMOGLOBIN 94.6 % (94.0-97.0); BG PCO2 34.2 mmHg (35.0-45.0); BG PH 7.422 (7.350-7.450); BG PO2 80.2 mmHg (75.0-100.0); BG SAMPLE SITE RIGHT BRACHIAL; BG TOTAL HEMOGLOBIN 14.7 g/dL (12.0-18.0); BG VENT MODE ROOM AIR
[2019-08-01 16:00] VITALS: BP 121/61
[2019-08-01 16:09] LABS: INR 1.3; PROTHROMBIN TIME 14.1 sec (9.6-11.0)
[2019-08-01 16:19] LABS: CREATINE KINASE 101 IU/L (39-308); CREATINE KINASE MB FRACTION < 1.0 ng/mL (0.5-3.6)
[2019-08-01] MEDS: PIPERACILLIN/TAZOBACTAM 3.375 G in DEXT 5% WATER 100 ML IV SCH ×2 (16:44→21:21)
[2019-08-01 20:00] VITALS: BP 155/66
[2019-08-01] MEDS ORDERED: ATORVASTATIN CALCIUM 10MG TABLET PO SCH (21:00)
[2019-08-01] MEDS ORDERED: TAMSULOSIN HCL 0.4MG SR CAPSULE PO SCH (21:00)
[2019-08-01] MEDS: LAMOTRIGINE 25MG TABLET PO SCH (21:26)
[2019-08-01] MEDS: VALPROIC ACID 250MG CAPSULE PO SCH (21:28)
[2019-08-02] VITALS: BP 153/62
[2019-08-02] MEDS: PIPERACILLIN/TAZOBACTAM 3.375 G in DEXT 5% WATER 100 ML IV SCH ×3 (02:14→15:09)
[2019-08-02 03:01] LABS: CLARITY URINE CLEAR (CLEAR); COLOR URINE RED (YELLOW); KETONES URINE NEGATIVE (NEGATIVE); LEUKOCYTE ESTERASE URINE TRACE (NEGATIVE); NITRITE URINE NEGATIVE (NEGATIVE); OCCULT BLOOD URINE 3+ (NEGATIVE); PROTEIN URINE 2+ (NEGATIVE); SPECIFIC GRAVITY URINE 1.009 (1.005-1.030)
[2019-08-02 04:00] VITALS: BP 149/72
[2019-08-02] MEDS: BLOOD SUGAR DIAGNOSTIC STRIP TEST SCH ×3 (06:15→16:45)
[2019-08-02 06:48] LABS: EOSINOPHILS % 2.5 % (0.0-5.0); HEMATOCRIT. 40.7 % (42.0-52.0); HEMOGLOBIN. 13.4 g/dL (14.0-18.0); LYMPHOCYTES % 43.7 % (20.0-50.0); MEAN CORPUSCULAR HEMOGLOBIN 33.1 pg (28.0-32.0); MEAN CORPUSCULAR VOLUME 100.3 fL (80.0-94.0); MEAN PLATELET VOLUME 8.2 fl (7.4-10.4); MONOCYTES % 12.2 % (2.0-8.0); NEUTROPHILS % 40.6 % (40.0-76.0); PLATELET 118 x1000/uL (130-400); RED BLOOD CELL COUNT 4.06 mill/uL (4.7-6.1); RED CELL DISTRIBUTION WIDTH 15.5 % (11.6-14.6)
[2019-08-02] MEDS: INSULIN LISPRO 100 UNITS/ML SUBCUT SCH ×3 (07:50→17:29)
[2019-08-02 08:00] VITALS: BP 140/70
[2019-08-02 08:42] LABS: CHLORIDE 111 mEq/L (98-107)
[2019-08-02] MEDS ORDERED: PHENYTOIN SODIUM EXTENDED 100MG CAPSULE PO SCH (09:00)
[2019-08-02] MEDS: VALPROIC ACID 250MG CAPSULE PO SCH ×2 (09:24→17:33)
[2019-08-02] MEDS: LAMOTRIGINE 25MG TABLET PO SCH (09:24)
[2019-08-02] MEDS: LOSARTAN POTASSIUM 50 MG TABLET PO SCH (09:24)
[2019-08-02] MEDS: PHENYTOIN SODIUM EXTENDED 100MG CAPSULE PO SCH (09:26)
[2019-08-02] MEDS: ASPIRIN 81MG EC TABLET PO SCH (09:27)
[2019-08-02] MEDS: CLOPIDOGREL 75MG TABLET PO SCH (09:27)
[2019-08-02] MEDS: ENOXAPARIN 40MG/0.4ML SYR SUBCUT SCH (09:29)
[2019-08-02] MEDS: FUROSEMIDE 40MG TABLET PO SCH ×2 (09:37→17:32)
[2019-08-02 12:00] VITALS: BP 120/64
[2019-08-02 15:53] VITALS: BP 122/64
[2019-08-02 16:00] VITALS: BP 124/53
== END 2019-08-02 19:20 | disposition home or self-care (01) | DRG 100 ==
LOC: ER 15:11 → 6WST 18:11 → ENRESERV 19:07
PROVIDERS: ADMIT Internal Medicine; ATTEND Internal Medicine
DX: G40.419 Other generalized epilepsy and epileptic syndromes, intractable, without status epilepticus (principal); I50.23 Acute on chronic systolic (congestive) heart failure; I42.9 Cardiomyopathy, unspecified; I11.0 Hypertensive heart disease with heart failure; E11.9 Type 2 diabetes mellitus without complications; D69.6 Thrombocytopenia, unspecified; I25.10 Atherosclerotic heart disease of native coronary artery without angina pectoris; D64.9 Anemia, unspecified; N40.0 Benign prostatic hyperplasia without lower urinary tract symptoms; R32 Unspecified urinary incontinence; Z88.8 Allergy status to other drugs, medicaments and biological substances; Z79.2 Long term (current) use of antibiotics; Z79.899 Other long term (current) drug therapy
CPT/HCPCS: 36415; 36600; 71045; 71250; 80048; 80053; 80165; 80185; 81003; 82375; 82550; 82553; 82805; 82962; 83036; 83880; 84484; 85025; 85027; 93005; 97162; 97535; 99285; J1165; J1650; J2060; J2543; J7030; J7060

== ENCOUNTER 2019-10-26 01:37 | Inpatient (IN) | payer MEDICARE, BC ==
[~2019-10-26] VITALS: Ht 177.8 cm; Wt 92.5 kg
[2019-10-26] MEDS ORDERED: ONDANSETRON HCL 4MG/2ML INJ IV STA (02:03)
[2019-10-26] MEDS ORDERED: SODIUM CHLORIDE 0.9% 1,000 ML IV ONE (02:03)
[2019-10-26 02:22] LABS: BASOPHILS % 1.2 % (0.0-2.0); EOSINOPHILS % 2.6 % (0.0-5.0); HEMATOCRIT. 42.9 % (42.0-52.0); HEMOGLOBIN. 14.1 g/dL (14.0-18.0); MEAN CORPUSCULAR HEMOGLOBIN 31.8 pg (28.0-32.0); MEAN CORPUSCULAR VOLUME 96.3 fL (80.0-94.0); MEAN PLATELET VOLUME 8.3 fl (7.4-10.4); MONOCYTES % 9.1 % (2.0-8.0); NEUTROPHILS % 41.1 % (40.0-76.0); PLATELET 156 x1000/uL (130-400); RED BLOOD CELL COUNT 4.45 mill/uL (4.7-6.1); RED CELL DISTRIBUTION WIDTH 14.7 % (11.6-14.6)
[2019-10-26 02:34] LABS: CHLORIDE 108 mEq/L (98-107)
[2019-10-26] MEDS ORDERED: PHENYTOIN SODIUM EXTENDED 100MG CAPSULE PO ONE (03:30)
[2019-10-26] MEDS ORDERED: ACETAMINOPHEN 325MG TABLET PO PRN (10:15)
[2019-10-26] MEDS ORDERED: ONDANSETRON HCL 4MG/2ML INJ IV PRN ×2 (10:15→10:30)
[2019-10-26] MEDS ORDERED: LORAZEPAM 2MG/ML CPJ IV PRN ×2 (10:15→10:30)
[2019-10-26 11:43] VITALS: BP 163/61
[2019-10-26] MEDS ORDERED: HYDR-4135 PO (13:54)
[2019-10-26] MEDS ORDERED: OXYB5TAB17 PO (13:54)
[2019-10-26] MEDS ORDERED: POTA10CA42 PO (13:54)
[2019-10-26] MEDS ORDERED: FINA5TAB11 MT (13:54)
[2019-10-26] MEDS: POTASSIUM CHLORIDE 10MEQ TABLET SR PO SCH (15:23)
[2019-10-26] MEDS: METOPROLOL TARTRATE 50MG TABLET PO SCH ×2 (15:23→21:00)
[2019-10-26] MEDS: CLOPIDOGREL 75MG TABLET PO SCH (15:23)
[2019-10-26] MEDS: HYDRALAZINE HCL 50MG TABLET PO SCH (15:23)
[2019-10-26] MEDS: ASPIRIN 81MG EC TABLET PO SCH (15:24)
[2019-10-26] MEDS: FINASTERIDE 5MG TABLET PO SCH (15:24)
[2019-10-26 15:44] VITALS: BP 155/47
[2019-10-26 16:17] VITALS: BP 130/52
[2019-10-26] MEDS: ACETAMINOPHEN 325MG TABLET PO PRN (16:31)
[2019-10-26] MEDS ORDERED: PHENYTOIN SODIUM EXTENDED 100MG CAPSULE PO SCH ×2 (17:00)
[2019-10-26] MEDS: PHENYTOIN SODIUM EXTENDED 100MG CAPSULE PO SCH (17:43)
[2019-10-26] MEDS: LAMOTRIGINE 25MG TABLET PO SCH (17:43)
[2019-10-26] MEDS: OXYBUTYNIN CHLORIDE 5MG TABLET PO SCH (17:44)
[2019-10-26] MEDS: DIVALPROEX SODIUM 500MG DR TABLET PO SCH (17:44)
[2019-10-26] MEDS: FUROSEMIDE 40MG TABLET PO SCH (17:44)
[2019-10-26 20:39] VITALS: BP 120/50
[2019-10-26] MEDS: TAMSULOSIN HCL 0.4MG SR CAPSULE PO SCH (21:07)
[2019-10-26] MEDS: ATORVASTATIN CALCIUM 10MG TABLET PO SCH (21:07)
[2019-10-27] VITALS (7 sets, daily range): BP systolic 121–183; BP diastolic 52–75
[2019-10-27] MEDS: FUROSEMIDE 40MG TABLET PO SCH ×2 (06:07→18:16)
[2019-10-27] MEDS: CLOPIDOGREL 75MG TABLET PO SCH (09:02)
[2019-10-27] MEDS: DIVALPROEX SODIUM 500MG DR TABLET PO SCH ×2 (09:02→18:16)
[2019-10-27] MEDS: ASPIRIN 81MG EC TABLET PO SCH (09:02)
[2019-10-27] MEDS: FINASTERIDE 5MG TABLET PO SCH (09:02)
[2019-10-27] MEDS: LAMOTRIGINE 25MG TABLET PO SCH ×2 (09:02→18:17)
[2019-10-27] MEDS: METOPROLOL TARTRATE 50MG TABLET PO SCH ×2 (09:03→21:12)
[2019-10-27] MEDS: OXYBUTYNIN CHLORIDE 5MG TABLET PO SCH ×2 (09:03→18:17)
[2019-10-27] MEDS: HYDRALAZINE HCL 50MG TABLET PO SCH ×2 (09:03→21:12)
[2019-10-27] MEDS: POTASSIUM CHLORIDE 10MEQ TABLET SR PO SCH (09:03)
[2019-10-27] MEDS: ENOXAPARIN 30MG/0.3ML SYR SUBCUT SCH ×2 (09:05→21:14)
[2019-10-27 16:38] LABS: BASOPHILS % 0.9 % (0.0-2.0); EOSINOPHILS % 1.4 % (0.0-5.0); HEMATOCRIT. 41.3 % (42.0-52.0); HEMOGLOBIN. 13.6 g/dL (14.0-18.0); LYMPHOCYTES % 51.7 % (20.0-50.0); MEAN CORPUSCULAR VOLUME 97.4 fL (80.0-94.0); MEAN PLATELET VOLUME 8.8 fl (7.4-10.4); MONOCYTES % 8.7 % (2.0-8.0); NEUTROPHILS % 37.3 % (40.0-76.0); PLATELET 56 x1000/uL (130-400); RED BLOOD CELL COUNT 4.25 mill/uL (4.7-6.1); RED CELL DISTRIBUTION WIDTH 14.6 % (11.6-14.6)
[2019-10-27] MEDS: ACETAMINOPHEN 325MG TABLET PO PRN (16:46)
[2019-10-27 16:51] LABS: CHLORIDE 111 mEq/L (98-107)
[2019-10-27] MEDS: PHENYTOIN SODIUM EXTENDED 100MG CAPSULE PO SCH (18:16)
[2019-10-27] MEDS: ATORVASTATIN CALCIUM 10MG TABLET PO SCH (21:11)
[2019-10-27] MEDS: TAMSULOSIN HCL 0.4MG SR CAPSULE PO SCH (21:14)
[2019-10-28] MEDS: ACETAMINOPHEN 325MG TABLET PO PRN (03:37)
[2019-10-28 04:00] VITALS: BP 131/58
[2019-10-28] MEDS: FUROSEMIDE 40MG TABLET PO SCH ×2 (06:28→17:27)
[2019-10-28 08:00] VITALS: BP 157/54
[2019-10-28] MEDS: POTASSIUM CHLORIDE 10MEQ TABLET SR PO SCH (08:47)
[2019-10-28] MEDS: LAMOTRIGINE 25MG TABLET PO SCH ×2 (08:47→17:27)
[2019-10-28] MEDS: FINASTERIDE 5MG TABLET PO SCH (08:47)
[2019-10-28] MEDS: CLOPIDOGREL 75MG TABLET PO SCH (08:48)
[2019-10-28] MEDS: ASPIRIN 81MG EC TABLET PO SCH (08:48)
[2019-10-28] MEDS: DIVALPROEX SODIUM 500MG DR TABLET PO SCH ×2 (08:48→17:26)
[2019-10-28] MEDS: HYDRALAZINE HCL 50MG TABLET PO SCH (08:49)
[2019-10-28] MEDS: METOPROLOL TARTRATE 50MG TABLET PO SCH (08:49)
[2019-10-28] MEDS: ENOXAPARIN 30MG/0.3ML SYR SUBCUT SCH (08:52)
[2019-10-28] MEDS: OXYBUTYNIN CHLORIDE 5MG TABLET PO SCH ×2 (08:52→17:27)
[2019-10-28 12:00] VITALS: BP 128/48
[2019-10-28] MEDS ORDERED: LAM25 PO (14:48)
[2019-10-28] MEDS ORDERED: CLON0.5T PO (14:48)
[2019-10-28 16:00] VITALS: BP 138/54
[2019-10-28 16:16] LABS: MEAN CORPUSCULAR HEMOGLOBIN 32.1 pg (28.0-32.0); PLATELET 144 x1000/uL (130-400); RED BLOOD CELL COUNT 4.06 mill/uL (4.7-6.1); RED CELL DISTRIBUTION WIDTH 14.6 % (11.6-14.6)
[2019-10-28 16:35] VITALS: BP 138/54
[2019-10-28] MEDS: PHENYTOIN SODIUM EXTENDED 100MG CAPSULE PO SCH (17:27)
== END 2019-10-28 17:55 | disposition home or self-care (01) | DRG 100 ==
LOC: ER 01:37 → 6WST 05:28 → ENRESERV 07:53 → ER 10:02
PROVIDERS: ADMIT Internal Medicine; ATTEND Internal Medicine
DX: G40.409 Other generalized epilepsy and epileptic syndromes, not intractable, without status epilepticus (principal); I50.23 Acute on chronic systolic (congestive) heart failure; G93.40 Encephalopathy, unspecified; R74.0 Nonspecific elevation of levels of transaminase and lactic acid dehydrogenase [LDH]; E11.9 Type 2 diabetes mellitus without complications; E78.5 Hyperlipidemia, unspecified; E87.8 Other disorders of electrolyte and fluid balance, not elsewhere classified; N40.0 Benign prostatic hyperplasia without lower urinary tract symptoms; I11.0 Hypertensive heart disease with heart failure; R91.8 Other nonspecific abnormal finding of lung field; D64.9 Anemia, unspecified; D69.6 Thrombocytopenia, unspecified; Z88.8 Allergy status to other drugs, medicaments and biological substances; Z79.82 Long term (current) use of aspirin; Z79.899 Other long term (current) drug therapy; Z79.02 Long term (current) use of antithrombotics/antiplatelets; Z87.01 Personal history of pneumonia (recurrent)
CPT/HCPCS: 36415; 71045; 80048; 80053; 80165; 80185; 82962; 85025; 85027; 93005; 95816; 96374; 97162; 99285; J1650; J2405; J7030

== ENCOUNTER 2020-10-22 16:32 | Emergency (ER) | payer BC, MEDICARE ==
[~2020-10-22] VITALS: Ht 177.8 cm; Wt 114.0 kg
[~2020-10-22 16:32] MED LIST changes: -ASPI-1158 PO; +ASPI-1497 PO; +CLON0.5T PO; -DOXA4TAB3 PO; +FINA5TAB11 MT; +HYDR-4135 PO; +ISOS60TA76 MT; +LAM25 PO; -LEVO500T2 MT; -METO-411 PO; +OXYB5TAB17 PO; +PHEN100C4 PO; -TOPI25TA48 PO; +TOPI50TA MT
[2020-10-22 17:30] LABS: CLARITY URINE CLOUDY (CLEAR); COLOR URINE YELLOW (YELLOW); KETONES URINE TRACE (NEGATIVE); LEUKOCYTE ESTERASE URINE TRACE (NEGATIVE); NITRITE URINE NEGATIVE (NEGATIVE); OCCULT BLOOD URINE NEGATIVE (NEGATIVE); PH URINE 7.5 (4.5-8.0); PROTEIN URINE NEGATIVE (NEGATIVE); SPECIFIC GRAVITY URINE 1.022 (1.005-1.030)
[2020-10-22 17:32] LABS: BASOPHILS % 0.7 % (0.0-2.0); EOSINOPHILS % 1.1 % (0.0-5.0); HEMATOCRIT. 39.3 % (42.0-52.0); LYMPHOCYTES % 46.5 % (20.0-50.0); MEAN CORPUSCULAR HEMOGLOBIN 31.4 pg (28.0-32.0); MEAN PLATELET VOLUME 8.1 fl (7.4-10.4); MONOCYTES % 11.4 % (2.0-8.0); NEUTROPHILS % 40.3 % (40.0-76.0); PLATELET 137 x1000/uL (130-400); RED BLOOD CELL COUNT 4.14 mill/uL (4.7-6.1); RED CELL DISTRIBUTION WIDTH 15.7 % (11.6-14.6)
[2020-10-22 17:38] LABS: CHLORIDE 114 mEq/L (98-107)
[2020-10-22 17:43] LABS: ETHANOL BLOOD < 10 mg/dL
[2020-10-22 17:46] LABS: *COCAINE SCREEN URINE NEGATIVE (NEGATIVE); METHADONE URINE SCREEN NEGATIVE (NEGATIVE); OPIATES URINE SCREEN NEGATIVE (NEGATIVE)
[2020-10-22 17:47] LABS: *AMPHETAMINES SCREEN URINE NEGATIVE (NEGATIVE); *BARBITURATES SCREEN URINE NEGATIVE (NEGATIVE); *BENZODIAZEPINES SCREEN URINE NEGATIVE (NEGATIVE); CANNABINOID URINE SCREEN PRESUMTIVE POSITIVE (NEGATIVE); PHENCYCLIDINE URINE SCREEN NEGATIVE (NEGATIVE)
[2020-10-22 20:15] VITALS: BP 135/66
[2020-10-25 14:09] LABS: TOPIRAMATE 2.6 ug/mL (2.0-25.0)
== END 2020-10-22 20:15 | disposition home or self-care (01) ==
LOC: ER 16:32
DX: R56.9 Unspecified convulsions (principal); E72.20 Disorder of urea cycle metabolism, unspecified; I10 Essential (primary) hypertension; Z79.899 Other long term (current) drug therapy
CPT/HCPCS: 36415; 71045; 80053; 80165; 80201; 80305; 80320; 81003; 82140; 82542; 82962; 83605; 85025; 93005; 99285; G0480

== ENCOUNTER 2022-04-20 20:22 | Inpatient (IN) | payer MEDICARE, BC ==
[~2022-04-20] VITALS: Ht 175.3 cm; Wt 68.0 kg
[2022-04-20] MEDS ORDERED: SODIUM CHLORIDE 0.9% 1,000 ML IV ONE (21:00)
[2022-04-20] MEDS ORDERED: PIPERACILLIN/TAZ 3.375G PREMIX 50 ML IV ONE (21:30)
[2022-04-20] MEDS ORDERED: VANCOMYCIN 1G PREMIX 200 ML IV ONE (21:30)
[2022-04-20] MEDS ORDERED: ACETAMINOPHEN 325MG TABLET PO ONE (21:30)
[2022-04-20 22:50] LABS: BASOPHILS % 0.8 % (0.0-2.0); EOSINOPHILS % 0.1 % (0.0-5.0); HEMATOCRIT. 41.2 % (42.0-52.0); HEMOGLOBIN. 13.3 g/dL (14.0-18.0); LYMPHOCYTES % 27.3 % (20.0-50.0); MEAN CORPUSCULAR VOLUME 99.5 fL (80.0-94.0); MEAN PLATELET VOLUME 8.4 fl (7.4-10.4); MONOCYTES % 3.2 % (2.0-8.0); NEUTROPHILS % 68.6 % (40.0-76.0); PLATELET 126 x1000/uL (130-400); RED BLOOD CELL COUNT 4.14 mill/uL (4.7-6.1); RED CELL DISTRIBUTION WIDTH 16.3 % (11.6-14.6)
[2022-04-20 22:56] LABS: CHLORIDE 107 mEq/L (98-107)
[2022-04-20 23:02] LABS: ETHANOL BLOOD < 10 mg/dL
[2022-04-20 23:06] LABS: CLARITY URINE CLEAR (CLEAR); COLOR URINE YELLOW (YELLOW); KETONES URINE TRACE (NEGATIVE); LEUKOCYTE ESTERASE URINE NEGATIVE (NEGATIVE); NITRITE URINE NEGATIVE (NEGATIVE); OCCULT BLOOD URINE NEGATIVE (NEGATIVE); PROTEIN URINE NEGATIVE (NEGATIVE); SPECIFIC GRAVITY URINE 1.013 (1.005-1.030)
[2022-04-20 23:17] LABS: *AMPHETAMINES SCREEN URINE NEGATIVE (NEGATIVE); *BARBITURATES SCREEN URINE NEGATIVE (NEGATIVE); *BENZODIAZEPINES SCREEN URINE NEGATIVE (NEGATIVE); *COCAINE SCREEN URINE NEGATIVE (NEGATIVE); CANNABINOID URINE SCREEN NEGATIVE (NEGATIVE); METHADONE URINE SCREEN NEGATIVE (NEGATIVE); OPIATES URINE SCREEN NEGATIVE (NEGATIVE); PHENCYCLIDINE URINE SCREEN NEGATIVE (NEGATIVE)
[2022-04-21 03:25] VITALS: BP 138/59
[2022-04-21] MEDS ORDERED: DIVA-73 PO (04:34)
[2022-04-21 07:20] VITALS: BP 168/85
[2022-04-21 09:00] VITALS: BP 149/65
[2022-04-21] MEDS ORDERED: PHENYTOIN SODIUM 300 MG in SODIUM CHLORIDE 0.9% 50 ML IV SCH (09:00)
[2022-04-21] MEDS: HEPARIN 5000 UNITS/ML VIAL SUBCUT SCH ×2 (09:19→21:09)
[2022-04-21 12:00] VITALS: BP 117/76
[2022-04-21 12:17] LABS: INR 1.5; PARTIAL THROMBOPLASTIN TIME 28.5 sec (23.4-31.0); PROTHROMBIN TIME 15.6 sec (9.6-11.0)
[2022-04-21] MEDS: CHOLECALCIFEROL (D3) 1000 UNIT TABLET PO SCH (13:14)
[2022-04-21] MEDS: AMLODIPINE 5MG TABLET PO SCH (13:15)
[2022-04-21] MEDS: DONEPEZIL HCL 5MG TABLET PO SCH (13:15)
[2022-04-21] MEDS: FINASTERIDE 5MG TABLET PO SCH (13:16)
[2022-04-21] MEDS ORDERED: IBUPROFEN 200MG TABLET PO PRN (14:00)
[2022-04-21] MEDS: DIVALPROEX SODIUM 500MG ER TABLET PO SCH (14:40)
[2022-04-21 16:00] VITALS: BP 132/62
[2022-04-21] MEDS: FUROSEMIDE 40MG TABLET PO SCH (16:55)
[2022-04-21 20:00] VITALS: BP 113/68
[2022-04-21] MEDS: TAMSULOSIN HCL 0.4MG SR CAPSULE PO SCH (21:07)
[2022-04-21] MEDS: HYDRALAZINE HCL 100MG TABLET PO SCH (21:08)
[2022-04-21] MEDS: ATORVASTATIN CALCIUM 40MG TABLET PO SCH (21:08)
[2022-04-21] MEDS: LAMOTRIGINE 100MG TABLET PO SCH (21:08)
[2022-04-21] MEDS: TOPIRAMATE 25MG TABLET PO SCH (21:09)
[2022-04-22] VITALS: BP 120/60
[2022-04-22 04:00] VITALS: BP_SYST 102; BP_SYST 106; BP_DIAS 50; BP_DIAS 67
[2022-04-22] MEDS: FUROSEMIDE 40MG TABLET PO SCH ×2 (06:08→17:44)
[2022-04-22 06:15] LABS: CHLORIDE 113 mEq/L (98-107)
[2022-04-22 08:00] VITALS: BP 135/67
[2022-04-22] MEDS: DIVALPROEX SODIUM 500MG ER TABLET PO SCH ×2 (08:51→17:45)
[2022-04-22] MEDS: HYDRALAZINE HCL 100MG TABLET PO SCH ×2 (08:51→20:16)
[2022-04-22] MEDS: CHOLECALCIFEROL (D3) 1000 UNIT TABLET PO SCH (08:51)
[2022-04-22] MEDS: AMLODIPINE 5MG TABLET PO SCH (08:51)
[2022-04-22] MEDS: DONEPEZIL HCL 5MG TABLET PO SCH (08:51)
[2022-04-22] MEDS: FINASTERIDE 5MG TABLET PO SCH (08:51)
[2022-04-22] MEDS: LAMOTRIGINE 100MG TABLET PO SCH ×2 (08:51→20:16)
[2022-04-22] MEDS: HEPARIN 5000 UNITS/ML VIAL SUBCUT SCH ×2 (08:52→20:16)
[2022-04-22 09:56] LABS: EOSINOPHILS % 1.7 % (0.0-5.0); HEMATOCRIT. 36.8 % (42.0-52.0); HEMOGLOBIN. 12.3 g/dL (14.0-18.0); LYMPHOCYTES % 52.5 % (20.0-50.0); MEAN CORPUSCULAR HEMOGLOBIN 32.2 pg (28.0-32.0); MEAN CORPUSCULAR VOLUME 96.4 fL (80.0-94.0); MEAN PLATELET VOLUME 8.7 fl (7.4-10.4); MONOCYTES % 11.3 % (2.0-8.0); NEUTROPHILS % 33.5 % (40.0-76.0); PLATELET 128 x1000/uL (130-400); RED BLOOD CELL COUNT 3.82 mill/uL (4.7-6.1); RED CELL DISTRIBUTION WIDTH 15.8 % (11.6-14.6)
[2022-04-22 12:00] VITALS: BP 109/62
[2022-04-22] MEDS: TOPIRAMATE 25MG TABLET PO SCH ×2 (13:00→20:15)
[2022-04-22 16:00] VITALS: BP 128/57
[2022-04-22] MEDS ORDERED: PEG15DRO14 EACHEYE (16:37)
[2022-04-22] MEDS ORDERED: AMLO5TAB88 MT (16:37)
[2022-04-22] MEDS ORDERED: CHOL200016 PO (16:41)
[2022-04-22] MEDS ORDERED: DONE-51 PO (16:41)
[2022-04-22] MEDS ORDERED: LAMO100T65 PO (16:49)
[2022-04-22] MEDS ORDERED: ATOR40TA70 PO (16:50)
[2022-04-22] MEDS ORDERED: TROS20TA3 PO (16:52)
[2022-04-22 20:00] VITALS: BP 118/67
[2022-04-22] MEDS: TAMSULOSIN HCL 0.4MG SR CAPSULE PO SCH (20:15)
[2022-04-22] MEDS: ATORVASTATIN CALCIUM 40MG TABLET PO SCH (20:16)
[2022-04-23] VITALS: BP 125/89
[2022-04-23 04:00] VITALS: BP 133/65
[2022-04-23] MEDS: FUROSEMIDE 40MG TABLET PO SCH (06:39)
[2022-04-23 08:00] VITALS: BP 108/58
[2022-04-23] MEDS: HYDRALAZINE HCL 100MG TABLET PO SCH (09:00)
[2022-04-23] MEDS: AMLODIPINE 5MG TABLET PO SCH (09:00)
[2022-04-23] MEDS: LAMOTRIGINE 100MG TABLET PO SCH (09:18)
[2022-04-23] MEDS: CHOLECALCIFEROL (D3) 1000 UNIT TABLET PO SCH (09:18)
[2022-04-23] MEDS: FINASTERIDE 5MG TABLET PO SCH (09:18)
[2022-04-23] MEDS: DIVALPROEX SODIUM 500MG ER TABLET PO SCH (09:18)
[2022-04-23] MEDS: HEPARIN 5000 UNITS/ML VIAL SUBCUT SCH (09:19)
[2022-04-23] MEDS: DONEPEZIL HCL 5MG TABLET PO SCH (09:23)
[2022-04-23] MEDS: TOPIRAMATE 25MG TABLET PO SCH (09:36)
[2022-04-23 10:48] VITALS: BP 108/58
== END 2022-04-23 13:00 | disposition home or self-care (01) | DRG 100 ==
LOC: ER 20:27 → EDBEDREQ 04-21 00:20 → 8WST 04-21 04:01
PROVIDERS: ADMIT Internal Medicine; ATTEND Internal Medicine
PROC: 4A00X4Z Measurement of Central Nervous Electrical Activity, External Approach (ICD-10-PCS; principal; 2022-04-22)
DX: G40.909 Epilepsy, unspecified, not intractable, without status epilepticus (principal); I50.23 Acute on chronic systolic (congestive) heart failure; D61.818 Other pancytopenia; I42.9 Cardiomyopathy, unspecified; I11.0 Hypertensive heart disease with heart failure; G30.9 Alzheimer's disease, unspecified; Z20.822 Contact with and (suspected) exposure to COVID-19; F02.80 Dementia in other diseases classified elsewhere, unspecified severity, without behavioral disturbance, psychotic disturbance, mood disturbance, and anxiety; Z88.8 Allergy status to other drugs, medicaments and biological substances; Z79.899 Other long term (current) drug therapy
CPT/HCPCS: 36415; 71045; 80048; 80053; 80165; 80305; 80320; 81003; 82140; 83605; 84145; 84484; 85025; 85049; 87426; 87804; 93005; 95816; 99285; C9803; J1165; J1644; J2543; J3370; J7030; G0480

== ENCOUNTER 2022-08-18 10:12 | Emergency (ER) | payer MEDICARE, BC ==
[~2022-08-18] VITALS: Ht 177.8 cm; Wt 96.0 kg
[~2022-08-18 10:12] MED LIST changes: +AMLO5TAB88 MT; -ASPI-1497 PO; +ATOR40TA70 PO; +CHOL200016 PO; -CLOP75TA33 PO; +DIVA-73 PO; -DIVA500T51 PO; +DONE-51 PO; -ISOS60TA76 MT; -LAM25 PO; +LAMO100T65 PO; -OXYB5TAB17 PO; +PEG15DRO14 EACHEYE; -PHEN100C12 PO; -SIMV-43 PO; +TROS20TA3 PO
[2022-08-18] MEDS ORDERED: DIVALPROEX SODIUM 250MG ER TABLET PO ONE (11:00)
[2022-08-18] MEDS ORDERED: PHENYTOIN SODIUM EXTENDED 100MG CAPSULE PO ONE (11:00)
[2022-08-18 15:24] VITALS: BP 138/51
== END 2022-08-18 17:29 | disposition home or self-care (01) ==
LOC: ER 10:12
DX: R56.9 Unspecified convulsions (principal); F03.90 Unspecified dementia, unspecified severity, without behavioral disturbance, psychotic disturbance, mood disturbance, and anxiety; Z79.899 Other long term (current) drug therapy
CPT/HCPCS: 99283

== ENCOUNTER 2023-01-07 09:58 | Inpatient (IN) | payer MEDICARE, BC ==
[~2023-01-07] VITALS: Ht 365.8 cm; Wt 77.1 kg
[~2023-01-07 09:58] MED LIST changes: -AMLO5TAB88 MT; +AMLO5TAB88 PO; +APIX5TAB MT; -ATOR40TA70 PO; +DIVA-18 PO; -DIVA-73 PO; -DONE-51 PO; -FINA5TAB11 MT; +FINA5TAB11 PO; -FURO-151 PO; -HYDR-4135 PO; +HYDR100T26 PO; +LAM15 PO; -LAMO100T65 PO; +LIP40 PO; -PEG15DRO14 EACHEYE; -PHEN100C4 PO; -TAMS-11 MT; +TAMS-11 PO; +TOPA25 PO; -TOPI50TA MT; -TROS20TA3 PO
[2023-01-07 10:46] LABS: BASOPHILS % 0.7 % (0.0-2.0); HEMATOCRIT. 37.5 % (42.0-52.0); HEMOGLOBIN. 12.6 g/dL (14.0-18.0); LYMPHOCYTES % 25.2 % (20.0-50.0); MEAN CORPUSCULAR HEMOGLOBIN 32.5 pg (28.0-32.0); MEAN CORPUSCULAR HGB CONC 33.7 g/dL (31.0-37.0); MEAN CORPUSCULAR VOLUME 96.5 fL (80.0-94.0); MEAN PLATELET VOLUME 8.3 fl (7.4-10.4); MONOCYTES % 4.5 % (2.0-8.0); NEUTROPHILS % 69.6 % (40.0-76.0); PLATELET 121 x1000/uL (130-400); RED BLOOD CELL COUNT 3.89 mill/uL (4.7-6.1); RED CELL DISTRIBUTION WIDTH 15.4 % (11.6-14.6); WHITE BLOOD COUNT 5.1 x1000/uL (4.5-11.0)
[2023-01-07 11:02] LABS: CLARITY URINE TURBID (CLEAR); COLOR URINE YELLOW (YELLOW); GLUCOSE URINE NEGATIVE (NEGATIVE); KETONES URINE TRACE (NEGATIVE); LEUKOCYTE ESTERASE URINE NEGATIVE (NEGATIVE); NITRITE URINE NEGATIVE (NEGATIVE); OCCULT BLOOD URINE 2+ (NEGATIVE); PH URINE 8.5 (4.5-8.0); PROTEIN URINE NEGATIVE (NEGATIVE); SPECIFIC GRAVITY URINE 1.015 (1.005-1.030)
[2023-01-07 11:12] LABS: CHLORIDE 113 mEq/L (98-107); INDEX HEMOLYSI 2 (1-3); INDEX ICTERIC 1 (1-4); INDEX LIPEMIC 1 (1-3); POTASSIUM 3.8 mEq/L (3.5-5.1); SODIUM 143 mEq/L (136-145)
[2023-01-07 11:15] LABS: AMORPHOUS SEDIMENT URINE 1+ /lpf
[2023-01-07 11:16] LABS: BACTERIA URINE 1+; RBC URINE 25-50 /hpf (0-2)
[2023-01-07 11:17] LABS: WBC URINE NONE SEEN /hpf (0-2)
[2023-01-07 11:21] LABS: ALANINE AMINOTRANSFERASE 12 IU/L (13-61); ALBUMIN 3.5 g/dL (3.4-5.0); ASPARTATE AMINOTRANSFERASE 15 IU/L (15-37); BILIRUBIN TOTAL 0.7 mg/dL (0.1-1.0); CALCIUM 8.2 mg/dL (8.5-10.1); CARBON DIOXIDE 22 mEq/L (21-32); CREATININE 0.9 mg/dL (0.6-1.3); ETHANOL BLOOD < 10 mg/dL (<10); GLUCOSE 100 mg/dL (70-105); PROTEIN TOTAL 6.3 g/dL (6.0-8.3); TROPONIN I HIGH SENSITIVITY 35 ng/L (<78); UREA NITROGEN BLOOD 14 mg/dL (7-21)
[2023-01-07 11:24] LABS: *AMPHETAMINES SCREEN URINE NEGATIVE (NEGATIVE); *BARBITURATES SCREEN URINE NEGATIVE (NEGATIVE); *BENZODIAZEPINES SCREEN URINE PRESUMTIVE POSITIVE (NEGATIVE); *COCAINE SCREEN URINE NEGATIVE (NEGATIVE); CANNABINOID URINE SCREEN NEGATIVE (NEGATIVE); ECSTASY MDMA SCREEN URINE NEGATIVE (NEGATIVE); OPIATES URINE SCREEN NEGATIVE (NEGATIVE); PHENCYCLIDINE URINE SCREEN NEGATIVE (NEGATIVE)
[2023-01-07 20:00] VITALS: BP 142/52; PULSE 74; RESP 19; TEMP 99.9
[2023-01-07 20:30] VITALS: BP 142/52; PULSE 74; RESP 19; TEMP 99.9
[2023-01-07] MEDS: TOPIRAMATE 25MG TABLET PO SCH (21:44)
[2023-01-07] MEDS: LAMOTRIGINE 100MG TABLET PO SCH (21:45)
[2023-01-07] MEDS: DIVALPROEX SODIUM 500MG DR TABLET PO SCH (21:45)
[2023-01-07] MEDS ORDERED: SODIUM CHLORIDE 0.9% 1,000 ML IV SCH (23:45)
[2023-01-07] MEDS ORDERED: ONDANSETRON HCL 4MG/2ML INJ IV PRN (23:45)
[2023-01-07] MEDS ORDERED: ACETAMINOPHEN 325MG TABLET PO PRN (23:45)
[2023-01-07] MEDS ORDERED: CLONAZEPAM 0.5MG TABLET PO PRN (23:45)
[2023-01-08] VITALS: BP 117/85; PULSE 66; RESP 20; TEMP 97.9
[2023-01-08 04:00] VITALS: BP 118/54; PULSE 61; RESP 19; TEMP 100
[2023-01-08 06:42] LABS: BASOPHILS % 0.5 % (0.0-2.0); EOSINOPHILS % 0.7 % (0.0-5.0); HEMATOCRIT. 36.9 % (42.0-52.0); HEMOGLOBIN. 12.2 g/dL (14.0-18.0); MEAN CORPUSCULAR HEMOGLOBIN 31.9 pg (28.0-32.0); MEAN CORPUSCULAR HGB CONC 33.1 g/dL (31.0-37.0); MEAN CORPUSCULAR VOLUME 96.3 fL (80.0-94.0); MEAN PLATELET VOLUME 8.7 fl (7.4-10.4); MONOCYTES % 10.4 % (2.0-8.0); NEUTROPHILS % 39.4 % (40.0-76.0); PLATELET 116 x1000/uL (130-400); RED BLOOD CELL COUNT 3.83 mill/uL (4.7-6.1); WHITE BLOOD COUNT 5.4 x1000/uL (4.5-11.0)
[2023-01-08 07:47] LABS: CHLORIDE 113 mEq/L (98-107); INDEX HEMOLYSI 1 (1-3); INDEX ICTERIC 1 (1-4); INDEX LIPEMIC 1 (1-3); POTASSIUM 3.9 mEq/L (3.5-5.1); SODIUM 143 mEq/L (136-145)
[2023-01-08 07:51] LABS: CALCIUM 9.1 mg/dL (8.5-10.1); CARBON DIOXIDE 26 mEq/L (21-32); GLUCOSE 79 mg/dL (70-105); UREA NITROGEN BLOOD 13 mg/dL (7-21)
[2023-01-08 08:00] VITALS: BP_SYST 124; BP_SYST 139; BP_DIAS 65; PULSE 85; RESP 20; RESP 69; TEMP 97; TEMP 97.8
[2023-01-08] MEDS: APIXABAN 5 MG TABLET PO SCH ×2 (09:17→16:18)
[2023-01-08] MEDS: LAMOTRIGINE 100MG TABLET PO SCH ×2 (09:17→21:57)
[2023-01-08] MEDS: DIVALPROEX SODIUM 500MG DR TABLET PO SCH ×2 (09:17→21:59)
[2023-01-08] MEDS: FINASTERIDE 5MG TABLET PO SCH (09:18)
[2023-01-08] MEDS: TOPIRAMATE 25MG TABLET PO SCH ×2 (09:18→21:57)
[2023-01-08] MEDS: AMLODIPINE 5MG TABLET PO SCH (09:28)
[2023-01-08] MEDS: HYDRALAZINE HCL 100MG TABLET PO SCH ×2 (09:28→16:23)
[2023-01-08 12:00] VITALS: BP 123/59; PULSE 85; RESP 20; RESP 22; TEMP 97.6; TEMP 97.8
[2023-01-08 13:34] LABS: LACTIC ACID 3.2 mmol/L (0.4-2.0)
[2023-01-08 14:36] LABS: *AMPHETAMINES SCREEN URINE NEGATIVE (NEGATIVE); *BARBITURATES SCREEN URINE NEGATIVE (NEGATIVE); *BENZODIAZEPINES SCREEN URINE PRESUMTIVE POSITIVE (NEGATIVE); *COCAINE SCREEN URINE NEGATIVE (NEGATIVE); CANNABINOID URINE SCREEN NEGATIVE (NEGATIVE); ECSTASY MDMA SCREEN URINE NEGATIVE (NEGATIVE); OPIATES URINE SCREEN NEGATIVE (NEGATIVE); PHENCYCLIDINE URINE SCREEN NEGATIVE (NEGATIVE)
[2023-01-08 15:00] LABS: METHADONE URINE SCREEN INVALID (NEGATIVE)
[2023-01-08] MEDS ORDERED: DIVA-73 PO (15:45)
[2023-01-08] MEDS ORDERED: TAMS-11 PO (15:45)
[2023-01-08] MEDS ORDERED: FURO40TA5 PO (15:45)
[2023-01-08] MEDS ORDERED: AMLO5TAB88 PO (15:45)
[2023-01-08] MEDS ORDERED: TOPI-255 PO (15:45)
[2023-01-08] MEDS ORDERED: DONE5TAB33 PO (15:45)
[2023-01-08] MEDS ORDERED: LAMO150T5 PO (15:45)
[2023-01-08] MEDS ORDERED: HYDR100T26 PO (15:45)
[2023-01-08] MEDS ORDERED: CHOL100036 PO (15:45)
[2023-01-08] MEDS ORDERED: ATOR40TA70 PO (15:45)
[2023-01-08] MEDS ORDERED: APIX5TAB PO (15:45)
[2023-01-08] MEDS ORDERED: FINA5TAB11 PO (15:45)
[2023-01-08 16:00] VITALS: BP 129/59; PULSE 81; RESP 20; TEMP 98
[2023-01-08 20:00] VITALS: BP 101/67; PULSE 72; RESP 19; TEMP 97.4
[2023-01-08] MEDS: ATORVASTATIN CALCIUM 40MG TABLET PO SCH (21:59)
[2023-01-08] MEDS: TAMSULOSIN HCL 0.4MG SR CAPSULE PO SCH (21:59)
[2023-01-09] VITALS (7 sets, daily range): BP systolic 100–123; BP diastolic 47–76; PULSE 70–78; RESP 16–18; TEMP 96.6–98; O2SAT 99–100
[2023-01-09] MEDS: APIXABAN 5 MG TABLET PO SCH ×2 (09:02→16:48)
[2023-01-09] MEDS: LAMOTRIGINE 100MG TABLET PO SCH ×2 (09:02→20:56)
[2023-01-09] MEDS: FINASTERIDE 5MG TABLET PO SCH (09:03)
[2023-01-09] MEDS: AMLODIPINE 5MG TABLET PO SCH (09:03)
[2023-01-09] MEDS: HYDRALAZINE HCL 100MG TABLET PO SCH ×2 (09:04→16:31)
[2023-01-09] MEDS: TOPIRAMATE 25MG TABLET PO SCH ×2 (09:08→20:56)
[2023-01-09] MEDS: DIVALPROEX SODIUM 500MG DR TABLET PO SCH ×2 (09:08→20:56)
[2023-01-09] MEDS: LACOSAMIDE 100 MG TABLET PO SCH (16:48)
[2023-01-09] MEDS ORDERED: CEFTRIAXONE 1,000 MG in DEXTROSE 5% WATER 50 ML IV SCH (20:00)
[2023-01-09] MEDS: ATORVASTATIN CALCIUM 40MG TABLET PO SCH (20:56)
[2023-01-09] MEDS: TAMSULOSIN HCL 0.4MG SR CAPSULE PO SCH (21:00)
[2023-01-09 23:01] LABS: CLARITY URINE CLEAR (CLEAR); COLOR URINE YELLOW (YELLOW); GLUCOSE URINE NEGATIVE (NEGATIVE); KETONES URINE NEGATIVE (NEGATIVE); LEUKOCYTE ESTERASE URINE NEGATIVE (NEGATIVE); NITRITE URINE NEGATIVE (NEGATIVE); OCCULT BLOOD URINE 1+ (NEGATIVE); PH URINE 6.5 (4.5-8.0); PROTEIN URINE NEGATIVE (NEGATIVE); SPECIFIC GRAVITY URINE 1.008 (1.005-1.030)
[2023-01-09 23:04] LABS: BACTERIA URINE NONE SEEN; YEAST URINE NONE SEEN
[2023-01-09 23:20] LABS: SQUAMOUS EPITHELIAL CELL URINE RARE /lpf (RARE/1+); WBC URINE 0-2 /hpf (0-2)
[2023-01-10] VITALS: BP 135/66; PULSE 65; RESP 18; TEMP 97.9
[2023-01-10 04:00] VITALS: BP 129/68; PULSE 64; RESP 16; TEMP 98.9
[2023-01-10 08:00] VITALS: BP 133/59; PULSE 71; RESP 18; TEMP 98.5
[2023-01-10] MEDS: APIXABAN 5 MG TABLET PO SCH (09:06)
[2023-01-10] MEDS: LAMOTRIGINE 100MG TABLET PO SCH (09:06)
[2023-01-10] MEDS: LACOSAMIDE 100 MG TABLET PO SCH (09:06)
[2023-01-10] MEDS: FINASTERIDE 5MG TABLET PO SCH (09:06)
[2023-01-10] MEDS: HYDRALAZINE HCL 100MG TABLET PO SCH (09:07)
[2023-01-10] MEDS: AMLODIPINE 5MG TABLET PO SCH (09:07)
[2023-01-10] MEDS: TOPIRAMATE 25MG TABLET PO SCH (09:07)
[2023-01-10] MEDS: DIVALPROEX SODIUM 500MG DR TABLET PO SCH (09:07)
[2023-01-10 12:00] VITALS: BP 122/53; PULSE 72; RESP 17; TEMP 97.9
== END 2023-01-10 16:11 | disposition home or self-care (01) | DRG 101 ==
LOC: ER 10:06 → 8WST 15:48
PROVIDERS: ADMIT Internal Medicine; ATTEND Internal Medicine
DX: G40.919 Epilepsy, unspecified, intractable, without status epilepticus (principal); N40.0 Benign prostatic hyperplasia without lower urinary tract symptoms; F03.90 Unspecified dementia, unspecified severity, without behavioral disturbance, psychotic disturbance, mood disturbance, and anxiety; I48.91 Unspecified atrial fibrillation; Z86.73 Personal history of transient ischemic attack (TIA), and cerebral infarction without residual deficits
CPT/HCPCS: 36415; 71045; 76770; 80048; 80053; 80165; 80201; 80305; 80320; 80339; 81003; 83605; 84145; 84484; 85025; 93005; 95816; 99285; J0696; J7060; G0480

== ENCOUNTER 2023-06-21 07:21 | Emergency (ER) | payer MEDICARE, BC ==
[~2023-06-21] VITALS: Ht 160 cm; Wt 80.0 kg
[~2023-06-21 07:21] MED LIST changes: -APIX5TAB MT; +APIX5TAB PO; +ATOR40TA70 PO; +CHOL100036 PO; -CHOL200016 PO; -CLON0.5T PO; -DIVA-18 PO; +DIVA-73 PO; +DONE5TAB33 PO; +FURO40TA5 PO; -LAM15 PO; +LAMO100T16 PO; -LIP40 PO; +POLY15DR31 EACHEYE; -TOPA25 PO; +TOPI25TA48 PO; +[UNRECOGNIZED DRUG - CODE] PO
[2023-06-21 07:34] VITALS: TEMP 98; O2SAT 99
[2023-06-21] MEDS: DIVALPROEX SODIUM 250MG ER TABLET PO ONE (08:00)
[2023-06-21] MEDS: TOPIRAMATE 25MG TABLET PO SCH (09:00)
[2023-06-21 12:10] VITALS: BP 136/81; PULSE 68; RESP 16
== END 2023-06-21 12:13 | disposition home or self-care (01) ==
LOC: ER 07:21
DX: S70.02XA Contusion of left hip, initial encounter (principal); R56.9 Unspecified convulsions; M54.9 Dorsalgia, unspecified; I10 Essential (primary) hypertension; Z88.8 Allergy status to other drugs, medicaments and biological substances; Z79.899 Other long term (current) drug therapy; X58.XXXA Exposure to other specified factors, initial encounter; Y93.89 Activity, other specified; Y92.89 Other specified places as the place of occurrence of the external cause; Y99.8 Other external cause status
CPT/HCPCS: 72100; 72170; 82962; 99284

== ENCOUNTER 2023-07-18 13:55 | Emergency (ER) | payer MEDICARE, BC ==
[~2023-07-18] VITALS: Ht 172.7 cm; Wt 82.0 kg
[2023-07-18 13:59] VITALS: O2SAT 99
[2023-07-18] MEDS: ACETAMINOPHEN 325MG TABLET PO ONE (14:58)
[2023-07-18] MEDS: LORAZEPAM 2MG/ML INJ IV ONE (17:34)
[2023-07-18 18:45] VITALS: BP 135/78; PULSE 85; RESP 13; TEMP 98
== END 2023-07-18 19:15 | disposition home or self-care (01) ==
LOC: ER 13:55
DX: R56.9 Unspecified convulsions (principal); R15.9 Full incontinence of feces; I10 Essential (primary) hypertension; F03.90 Unspecified dementia, unspecified severity, without behavioral disturbance, psychotic disturbance, mood disturbance, and anxiety; Z88.8 Allergy status to other drugs, medicaments and biological substances
CPT/HCPCS: 99285; 96374; 70450; 82962; J2060

== ENCOUNTER 2023-09-12 10:19 | Emergency (ER) | payer BC, MEDICARE ==
[~2023-09-12] VITALS: Ht 177.8 cm; Wt 90.0 kg
[2023-09-12 10:23] VITALS: TEMP 98.8; O2SAT 98
[2023-09-12 11:36] LABS: BASOPHILS % 1.1 % (0.0-2.0); EOSINOPHILS % 0.4 % (0.0-5.0); HEMATOCRIT. 35.5 % (42.0-52.0); HEMOGLOBIN. 11.6 g/dL (14.0-18.0); LYMPHOCYTES % 44.6 % (20.0-50.0); MEAN CORPUSCULAR HEMOGLOBIN 31.3 pg (28.0-32.0); MEAN CORPUSCULAR HGB CONC 32.6 g/dL (31.0-37.0); MEAN CORPUSCULAR VOLUME 95.9 fL (80.0-94.0); MEAN PLATELET VOLUME 7.6 fl (7.4-10.4); MONOCYTES % 8.5 % (2.0-8.0); NEUTROPHILS % 45.4 % (40.0-76.0); PLATELET 149 x1000/uL (130-400); WHITE BLOOD COUNT 3.8 x1000/uL (4.5-11.0)
[2023-09-12 11:42] LABS: CHLORIDE 106 mEq/L (98-107); POTASSIUM 4.3 mEq/L (3.5-5.1); SODIUM 139 mEq/L (136-145)
[2023-09-12 11:43] LABS: CALCIUM 8.5 mg/dL (8.7-10.4); CARBON DIOXIDE 26 mEq/L (21-32)
[2023-09-12 11:48] LABS: GLUCOSE 97 mg/dL (70-105); UREA NITROGEN BLOOD 17 mg/dL (9-23)
[2023-09-12] MEDS: VALPROATE SODIUM 1,000 MG in DEXT 5% WATER 100 ML IV ONE (11:56)
[2023-09-12 14:45] VITALS: BP 141/73; PULSE 81; RESP 14
== END 2023-09-12 15:16 | disposition home or self-care (01) ==
LOC: ER 10:19
DX: G40.909 Epilepsy, unspecified, not intractable, without status epilepticus (principal); F03.90 Unspecified dementia, unspecified severity, without behavioral disturbance, psychotic disturbance, mood disturbance, and anxiety; I10 Essential (primary) hypertension; Z91.048 Other nonmedicinal substance allergy status; Z79.899 Other long term (current) drug therapy
CPT/HCPCS: 99284; 96365; 80048; 85025; 36415; J3490; J7060

== ENCOUNTER 2023-09-25 20:01 | Emergency (ER) | payer BC, MEDICARE ==
[~2023-09-25] VITALS: Ht 172.7 cm; Wt 70.0 kg
[2023-09-25 20:05] VITALS: O2SAT 100
[2023-09-25 21:17] VITALS: BP 135/71; PULSE 82; RESP 14; TEMP 98.4
[2023-09-25 21:23] LABS: BASOPHILS % 0.7 % (0.0-2.0); EOSINOPHILS % 0.1 % (0.0-5.0); HEMATOCRIT. 40.6 % (42.0-52.0); HEMOGLOBIN. 13.4 g/dL (14.0-18.0); LYMPHOCYTES % 15.5 % (20.0-50.0); MEAN CORPUSCULAR HEMOGLOBIN 31.4 pg (28.0-32.0); MEAN CORPUSCULAR HGB CONC 32.9 g/dL (31.0-37.0); MEAN CORPUSCULAR VOLUME 95.4 fL (80.0-94.0); MEAN PLATELET VOLUME 7.7 fl (7.4-10.4); MONOCYTES % 9.9 % (2.0-8.0); NEUTROPHILS % 73.8 % (40.0-76.0); PLATELET 144 x1000/uL (130-400); RED BLOOD CELL COUNT 4.26 mill/uL (4.7-6.1); RED CELL DISTRIBUTION WIDTH 14.7 % (11.6-14.6); WHITE BLOOD COUNT 5.1 x1000/uL (4.5-11.0)
[2023-09-25 21:31] LABS: CARBON DIOXIDE 28 mEq/L (21-32); CHLORIDE 104 mEq/L (98-107); SODIUM 139 mEq/L (136-145)
[2023-09-25 21:32] LABS: CALCIUM 9.2 mg/dL (8.7-10.4)
[2023-09-25 21:37] LABS: GLUCOSE 111 mg/dL (70-105); UREA NITROGEN BLOOD 13 mg/dL (9-23)
[2023-09-25 21:39] LABS: AMMONIA < 17 uMol/L (<32)
== END 2023-09-25 23:18 | disposition home or self-care (01) ==
LOC: ER 20:01
DX: R56.9 Unspecified convulsions (principal); F03.90 Unspecified dementia, unspecified severity, without behavioral disturbance, psychotic disturbance, mood disturbance, and anxiety; I10 Essential (primary) hypertension; Z79.899 Other long term (current) drug therapy
CPT/HCPCS: 36415; 80048; 82140; 85025; 99283

== ENCOUNTER 2024-02-06 19:30 | Emergency (ER) | payer MEDICARE, BC ==
[~2024-02-06] VITALS: Ht 177.8 cm; Wt 75.0 kg
[~2024-02-06 19:30] MED LIST changes: +HYDR100T11 PO; -HYDR100T26 PO
[2024-02-06 20:04] VITALS: O2SAT 98
[2024-02-06 21:07] LABS: BASOPHILS % 0.6 % (0.0-2.0); EOSINOPHILS % 0.9 % (0.0-5.0); HEMATOCRIT. 47.1 % (42.0-52.0); HEMOGLOBIN. 15.5 g/dL (14.0-18.0); MEAN CORPUSCULAR HEMOGLOBIN 31.6 pg (28.0-32.0); MEAN CORPUSCULAR HGB CONC 32.9 g/dL (31.0-37.0); MEAN PLATELET VOLUME 7.8 fl (7.4-10.4); MONOCYTES % 7.6 % (2.0-8.0); NEUTROPHILS % 50.9 % (40.0-76.0); PLATELET 176 x1000/uL (130-400); RED BLOOD CELL COUNT 4.91 mill/uL (4.7-6.1); WHITE BLOOD COUNT 4.5 x1000/uL (4.5-11.0)
[2024-02-06 21:12] LABS: CHLORIDE 108 mEq/L (98-107); SODIUM 139 mEq/L (136-145)
[2024-02-06 21:13] LABS: CARBON DIOXIDE 26 mEq/L (21-32)
[2024-02-06 21:14] LABS: CALCIUM 9.8 mg/dL (8.7-10.4)
[2024-02-06 21:18] LABS: CREATININE 0.9 mg/dL (0.6-1.3); GLUCOSE 108 mg/dL (70-105)
[2024-02-06 21:19] LABS: UREA NITROGEN BLOOD 13 mg/dL (9-23)
[2024-02-06 21:20] LABS: ALANINE AMINOTRANSFERASE 13 IU/L (10-49); ALBUMIN 4.5 g/dL (3.2-4.8); ASPARTATE AMINOTRANSFERASE 34 IU/L (<34)
[2024-02-06 21:21] LABS: BILIRUBIN TOTAL 0.6 mg/dL (0.1-1.0); PROTEIN TOTAL 7.3 g/dL (6.0-8.3)
[2024-02-06 21:31] LABS: POTASSIUM 6.2 mEq/L (3.5-5.1)
[2024-02-06 22:19] LABS: CHLORIDE 107 mEq/L (98-107); POTASSIUM 4.6 mEq/L (3.5-5.1); SODIUM 141 mEq/L (136-145)
[2024-02-06 22:20] LABS: CARBON DIOXIDE 26 mEq/L (21-32)
[2024-02-06 22:21] LABS: CALCIUM 9.4 mg/dL (8.7-10.4)
[2024-02-06 22:25] LABS: CREATININE 0.7 mg/dL (0.6-1.3); GLUCOSE 102 mg/dL (70-105); UREA NITROGEN BLOOD 12 mg/dL (9-23)
[2024-02-07 00:13] VITALS: BP 136/79; PULSE 78; RESP 16; TEMP 37.00296; O2SAT 100
== END 2024-02-07 00:48 | disposition home or self-care (01) ==
LOC: ER 19:30
DX: G40.909 Epilepsy, unspecified, not intractable, without status epilepticus (principal); I48.91 Unspecified atrial fibrillation; F03.90 Unspecified dementia, unspecified severity, without behavioral disturbance, psychotic disturbance, mood disturbance, and anxiety; I11.0 Hypertensive heart disease with heart failure; I50.9 Heart failure, unspecified; Z79.899 Other long term (current) drug therapy; Z79.01 Long term (current) use of anticoagulants
CPT/HCPCS: 36415; 80048; 80053; 82962; 85025; 93005; 99284

== ENCOUNTER 2024-06-23 01:40 | Emergency (ER) | payer MEDICARE, OTHER ==
[~2024-06-23] VITALS: Ht 180.3 cm; Wt 90.0 kg
[~2024-06-23 01:40] MED LIST changes: +LACO100T4
[2024-06-23 01:42] VITALS: O2SAT 99
[2024-06-23 04:01] LABS: BASOPHILS % 0.6 % (0.0-2.0); EOSINOPHILS % 0.4 % (0.0-5.0); HEMATOCRIT. 43.6 % (42.0-52.0); HEMOGLOBIN. 14.1 g/dL (14.0-18.0); LYMPHOCYTES % 25.6 % (20.0-50.0); MEAN CORPUSCULAR HEMOGLOBIN 31.6 pg (28.0-32.0); MEAN CORPUSCULAR HGB CONC 32.4 g/dL (31.0-37.0); MEAN CORPUSCULAR VOLUME 97.4 fL (80.0-94.0); NEUTROPHILS % 65.4 % (40.0-76.0); PLATELET 132 x1000/uL (130-400); RED BLOOD CELL COUNT 4.48 mill/uL (4.7-6.1); RED CELL DISTRIBUTION WIDTH 15.4 % (11.6-14.6); WHITE BLOOD COUNT 5.5 x1000/uL (4.5-11.0)
[2024-06-23 04:20] LABS: CHLORIDE 105 mEq/L (98-107); POTASSIUM 4.8 mEq/L (3.5-5.1); SODIUM 141 mEq/L (136-145)
[2024-06-23 04:21] LABS: CARBON DIOXIDE 27 mEq/L (21-32)
[2024-06-23 04:22] LABS: CALCIUM 10.1 mg/dL (8.7-10.4)
[2024-06-23] MEDS: VALPROIC ACID 250MG CAPSULE PO ONE (04:23)
[2024-06-23 04:26] LABS: CREATININE 0.8 mg/dL (0.6-1.3); GLUCOSE 77 mg/dL (70-105); UREA NITROGEN BLOOD 12 mg/dL (9-23)
[2024-06-23 04:27] LABS: TROPONIN I HIGH SENSITIVITY 29 ng/L (3.0-53); VALPROIC ACID 41.9 ug/mL (50-100)
[2024-06-23 06:49] VITALS: BP 154/91; PULSE 71; RESP 15; TEMP 36.9; O2SAT 95
== END 2024-06-23 09:24 | disposition home or self-care (01) ==
LOC: ER 01:40
DX: R56.9 Unspecified convulsions (principal); F03.90 Unspecified dementia, unspecified severity, without behavioral disturbance, psychotic disturbance, mood disturbance, and anxiety; I10 Essential (primary) hypertension; I67.82 Cerebral ischemia; Z79.01 Long term (current) use of anticoagulants; Z79.899 Other long term (current) drug therapy; Z86.73 Personal history of transient ischemic attack (TIA), and cerebral infarction without residual deficits
CPT/HCPCS: 36415; 71045; 80048; 80165; 83605; 84484; 85025; 93005; 99285

== ENCOUNTER 2024-07-25 19:05 | Emergency (ER) | payer MEDICARE, OTHER ==
[~2024-07-25] VITALS: Ht 172.7 cm; Wt 91.0 kg
[~2024-07-25 19:05] MED LIST changes: -TAMS-11 PO; +TAMS-54 PO; +TOPI-252 PO; -TOPI25TA48 PO
[2024-07-25 19:09] VITALS: TEMP 36.9; O2SAT 99
[2024-07-25] MEDS: VALPROIC ACID 250MG CAPSULE PO STA (19:41)
[2024-07-25 20:46] VITALS: BP 139/68; PULSE 83; RESP 14; O2SAT 99
== END 2024-07-25 20:55 | disposition home or self-care (01) ==
LOC: ER 19:05
DX: R56.9 Unspecified convulsions (principal); I10 Essential (primary) hypertension; F03.90 Unspecified dementia, unspecified severity, without behavioral disturbance, psychotic disturbance, mood disturbance, and anxiety; Z86.73 Personal history of transient ischemic attack (TIA), and cerebral infarction without residual deficits; Z79.899 Other long term (current) drug therapy; Z79.01 Long term (current) use of anticoagulants; Z88.8 Allergy status to other drugs, medicaments and biological substances
CPT/HCPCS: 99283